=== PATIENT | male | born 1930 | race Caucasian/White ===

== ENCOUNTER 2017-03-12 16:42 | Inpatient (IN) | payer MEDICARE, BC ==
--- NOTE | 2017-03-12 17:16 | ED PDOC ---
Lower Extremity Pain/Injury Time Seen by Provider: 03/12/17 16:54 Chief Complaint (Nursing): Hip Pain Chief Complaint (Provider): RIGHT hip pain History Per: Family Onset/Duration Of Symptoms: Days (6) Current Symptoms Are (Timing): Still Present Additional Complaint(s): Walking in a park on Thursday and missed a step and fell on his RIGHT side but has been frequently losing balance recently. c/o limp and RIGHT hip, knee and ankle pain PMD DR Antonio - Hip Description Of Injury: Tripped, Lost Balance Past Medical History Reviewed: Historical Data, Nursing Documentation, Vital Signs Vital Signs: Last Vital Signs Temp 99.1 F 03/12/17 16:49 Pulse 68 03/12/17 16:49 Resp 16 03/12/17 16:49 BP 146/71 03/12/17 16:49 Pulse Ox 95 03/12/17 16:49 - Medical History PMH: CAD, HTN, Hypercholesterolemia - Surgical History Surgical History: Pacemaker - Family History Family History: States: Unknown Family Hx - Social History Current smoker - smoking cessation education provided: No - Home Medications Home Medications: Ambulatory Orders Medication Instructions Recorded Atorvastatin [Lipitor] 1 tab PO DAILY 03/12/17 Memantine [Namenda] 1 tab PO HS 03/12/17 Valsartan/Hydrochlorothiazide 1 tab PO DAILY 03/12/17 [Valsartan-Hctz 80-12.5 mg Tab] Vit B12/Levomefolate/Vit B6/B2 1 tab PO DAILY 03/12/17 [Cerefolin Caplet] - Allergies Allergies/Adverse Reactions: Allergies Allergy/AdvReac Type Severity Reaction Status Date / Time No Known Allergies Allergy Verified 03/12/17 16:49 Review of Systems ROS Statement: Except As Marked, All Systems Reviewed And Found Negative (and as per HPI) Constitutional: Positive for: Weakness, Malaise Cardiovascular: Positive for: Light Headedness. Negative for: Chest Pain Musculoskeletal: Positive for: Arm Pain, Leg Pain Skin: Positive for: Lesions Neurological: Positive for: Incoordination, Dizziness Physical Exam - Reviewed Nursing Documentation Reviewed: Yes Vital Signs Reviewed: Yes - Physical Exam Appears: Positive for: Non-toxic, No Acute Distress Head Exam: Positive for: ATRAUMATIC, NORMOCEPHALIC Skin: Positive for: Warm, Dry Eye Exam: Positive for: EOMI, PERRL ENT: Positive for: Pharynx Is (dry) Neck: Positive for: Painless ROM, Supple Cardiovascular/Chest: Positive for: Regular Rate, Rhythm, Chest Non Tender. Negative for: Murmur Respiratory: Positive for: Normal Breath Sounds. Negative for: Respiratory Distress Gastrointestinal/Abdominal: Positive for: Soft. Negative for: Tenderness Back: Positive for: Other (RIGHT SI tenderness to palpation with +SLR) Extremity: Positive for: Other (RIGHT knee: +pain illicited with extension and flexion, but otherwise no deformity or edema, neurovascularly intact distally. RIGHT hip: +log roll, but no deformity, +ttp deep palpation of lateral groin. RIGHT elbow: wound RIGHT elbow with erythema extension along upper arm posterioroly) Lymphatic: Negative for: Adenopathy Neurologic/Psych: Positive for: Alert, Oriented (x2), Gait (unable to ambulate) . Negative for: Motor/Sensory Deficits - Laboratory Results Result Diagrams: 03/12/17 21:35 03/12/17 21:35 - ECG O2 Sat by Pulse Oximetry: 95 Pulse Ox Interpretation: Normal - Progress ED Course And Treament: Accession No. : [id number] Patient Name / ID : KAREN PECK / [id number] Exam Date : 03/12/2017 18:05:14 ( Approved ) Study Comment : Sex / Age : M / 86Y Creator : Bhavesh Westbrook MD Dictator : Bhavesh Westbrook MD Motor Adjuster : Level Vial Marker : Bhavesh Westbrook MD Approver2 : Report Date : 03/12/2017 19:02:31 My Comment : PROCEDURE: CT HEAD WITHOUT CONTRAST. HISTORY: frequent falls and loss of balance COMPARISON: 12/31/2016 TECHNIQUE: Axial computed tomography images were obtained through the head/brain without intravenous contrast. Coronal and sagittal reconstructed images. Radiation dose: Total exam DLP = 891.67 mGy-cm. This CT exam was performed using one or more of the following dose reduction techniques: Automated exposure control, adjustment of the mA and/or kV according to patient size, and/or use of iterative reconstruction technique. FINDINGS: HEMORRHAGE: No intracranial hemorrhage. BRAIN: No mass effect or edema. Cortical atrophy, periventricular small vessel disease VENTRICLES: Unremarkable. No hydrocephalus. CALVARIUM: Unremarkable. PARANASAL SINUSES: Unremarkable as visualized. No significant inflammatory changes. MASTOID AIR CELLS: Unremarkable as visualized. No inflammatory changes. OTHER FINDINGS: None. IMPRESSION: Normal CT of the Head. No acute intracranial abnormalities. No significant findings to account for the clinical presentation. No significant interval change compared to the prior examination(s). Pt has unsteady gait, inability to walk, and intractable pain, as well as RIGHT elbow wound infection and cellulitis. DW Dr Antonio and family. Pt to be hospitalized for further workup and management. Disposition - Clinical Impression Clinical Impression: Gait abnormality, Multiple trauma, Cellulitis - Disposition Disposition Time: 19:00 Condition: GUARDED - Pt Status Changed To: Hospital Disposition Of: Inpatient - Admit Certification Admit to Inpatient:: After my assessment, the patient will require hospitalization for at least two midnights. This is because of the severity of symptoms shown, intensity of services needed, and/or the medical risk in this patient being treated as an outpatient. - POA Present On Arrival: Falls Or Trauma
--- NOTE | 2017-03-12 19:03 | CT ---
PROCEDURE: CT HEAD WITHOUT CONTRAST. HISTORY: frequent falls and loss of balance COMPARISON: 12/31/2016 TECHNIQUE: Axial computed tomography images were obtained through the head/brain without intravenous contrast. Coronal and sagittal reconstructed images. Radiation dose: Total exam DLP = 891.67 mGy-cm. This CT exam was performed using one or more of the following dose reduction techniques: Automated exposure control, adjustment of the mA and/or kV according to patient size, and/or use of iterative reconstruction technique. FINDINGS: HEMORRHAGE: No intracranial hemorrhage. BRAIN: No mass effect or edema. Cortical atrophy, periventricular small vessel disease VENTRICLES: Unremarkable. No hydrocephalus. CALVARIUM: Unremarkable. PARANASAL SINUSES: Unremarkable as visualized. No significant inflammatory changes. MASTOID AIR CELLS: Unremarkable as visualized. No inflammatory changes. OTHER FINDINGS: None. IMPRESSION: Normal CT of the Head. No acute intracranial abnormalities. No significant findings to account for the clinical presentation. No significant interval change compared to the prior examination(s).
[2017-03-12] MEDS ORDERED: Bacitracin 500 Units/gm Oint Foilpak UD TOP ONE (20:39)
[2017-03-12] MEDS ORDERED: Ampicillin/Sulbactam 3 GM in Sodium Chloride 0.9% 100 ML IVPB STA (21:06)
[2017-03-12 21:51] LABS: BASO % 0.6 % (0.0-2.0); EOS % 0.3 % (0.0-4.0); HEMATOCRIT 34.8 % (35.0-51.0); LYMPH # 1.8 K/uL (1.0-4.3); LYMPH % 30.9 % (20.0-40.0); MEAN CELL VOLUME 95.4 fl (80.0-94.0); MEAN CORPUSCULAR HEMOGLOBIN 31.7 pg (27.0-31.0); MEAN CORPUSCULAR HGB CONC 33.2 g/dL (33.0-37.0); MEAN PLATELET VOLUME 8.2 fl (7.2-11.7); MONO % 16.6 % (0.0-10.0); NEUT # 3.1 K/uL (1.8-7.0); NEUT % 51.6 % (50.0-75.0); RED CELL DISTRIBUTION WIDTH 12.6 % (11.5-14.5); WHITE BLOOD COUNT 5.9 K/uL (4.8-10.8)
[2017-03-12 22:11] LABS: ALB/GLOB RATIO 1.4 (1.0-2.1); ALKALINE PHOSPHATASE 55 U/L (38-126); ALT/SGPT 28 U/L (21-72); AST/SGOT 29 U/L (17-59); BILIRUBIN,TOTAL 0.9 mg/dl (0.2-1.3); BLOOD UREA NITROGEN 15 mg/dl (9-20); CALCIUM 9.5 mg/dL (8.4-10.2); CARBON DIOXIDE 29 mmol/L (22-30); CHLORIDE 100 mmol/L (98-107); GFR AFRICAN-AMERICAN > 60; GLUCOSE,RANDOM 101 mg/dL (75-110); PHOSPHOROUS 3.3 mg/dl (2.5-4.5); POTASSIUM 3.8 MMOL/L (3.6-5.0); SODIUM 139 mmol/l (132-148)
[2017-03-13] MEDS ORDERED: Pneumococcal 23-Valent Vaccine IM ONE (07:49)
[2017-03-13] MEDS ORDERED: Influenza Vaccine 18yr & older 0.5 ML/45 MCG SYR IM ONE (07:49)
--- NOTE | 2017-03-13 08:06 | CARD ---
APPROVED REPORT EKG Measurement Heart [id number] <Conclusion> Normal sinus rhythm Normal ECG
[2017-03-13] MEDS ORDERED: Patient's Own Med (Valsartan/Hydrochlorothiazide [Valsartan-Hctz 80-12.5 Mg Tab] 1 TAB) PO SCH (09:00)
[2017-03-13] MEDS ORDERED: Ampicillin/Sulbactam 1.5 gm Inj IVPB SCH (09:00)
[2017-03-13] MEDS: Ampicillin/Sulbactam 1.5 GM in Sodium Chloride 0.9% 100 ML IVPB SCH ×2 (09:28→17:07)
[2017-03-13] MEDS: Enoxaparin 40 mg Syringe SC SCH (09:29)
[2017-03-13 09:30] LABS: THYROID STIMULATING HORMONE 2.74 mIU/ML (0.46-4.68)
--- NOTE | 2017-03-13 10:23 | RAD ---
HISTORY: Falls COMPARISON: 12/13/2013. FINDINGS: LUNGS: The lungs are well inflated and clear. PLEURA: No significant pleural effusion identified, no pneumothorax apparent. CARDIOVASCULAR: The heart is normal in size. There is stable position of a left-sided dual lead transvenous permanent pacing device. Atherosclerotic aortic arch calcifications are present. OSSEOUS STRUCTURES: No significant abnormalities. VISUALIZED UPPER ABDOMEN: Normal. OTHER FINDINGS: None. IMPRESSION: No active pulmonary disease.
--- NOTE | 2017-03-13 10:45 | RAD ---
PROCEDURE: Right Ankle Radiographs. HISTORY: pain s/p fall COMPARISON: None FINDINGS: BONES: There is no acute displaced fracture or bone destruction. Bone alignment there is normal. JOINTS: Normal. No osteoarthritis. Ankle mortise maintained. Talar dome intact SOFT TISSUES: There is mild periarticular soft tissue swelling. OTHER FINDINGS: None. IMPRESSION: No acute fracture or dislocation.
--- NOTE | 2017-03-13 10:51 | RAD ---
PROCEDURE: Right Knee Radiographs. HISTORY: pain s/p fall COMPARISON: None. FINDINGS: BONES: There is no acute displaced fracture or bone destruction. Bone alignment and mineralization are normal. JOINTS: There is severe tricompartmental degenerative osteoarthrosis with reduced joint spaces, marginal spurring and chondrocalcinosis, worse in the medial compartment. JOINT EFFUSION: There is a moderate suprapatellar joint effusion. OTHER FINDINGS: None. IMPRESSION: No acute fracture or dislocation. Severe tricompartmental degenerative osteoarthrosis, worse in the medial compartment. Moderate suprapatellar joint effusion
--- NOTE | 2017-03-13 10:55 | CP.PCM.CON ---
History of Present Illness - History of Present Illness History of Present Illness: This 86-year-old hypertensive man was hospitalized upon complaining of severe lower back pain and intense pain in his right lower extremity in his doctor's office. He had had a fall in which she had injured right side of his body including right elbow and had complained of aches and pains prior to going to the doctor's office. He has a long medical history which includes hypertension and sick sinus syndrome for which she initially needed a DDD pacemaker implanted in 2004 which was revised couple of years back. He has a history of having required TURP approximately 4 or 5 years back subsequent to which he has not taken any medications for prostatism. Over the last 4-5 years. He has gradually developed cognitive decline and has had repeated episodes of falling. He had undergone a coronary angiogram more than 12 years back no significant coronary disease was detected no intervention was undertaken. Subsequently the patient has not experienced any effort related chest pain and there has never been symptoms of congestive cardiac failure. The patient has taken antihypertensives medications regularly. Physical examination shows an elderly man who is alert and awake and seems to be quite aware of his surroundings and interacts with me and his family appropriately. Afebrile with a pulse rate of 68 bpm and regular and a blood pressure of 126/74 mmHg. His jugular venous pressure was not elevated at there was no edema of his lower extremity. The pedal pulses were well felt. There were no carotid bruits. The first and second heart sounds are normal. There was no murmur or gallop there were no rales. Abdomen was soft liver and spleen are not palpable. The patient was able to lift his right lower extremity without much difficulty but did complain of aches and pains. His electric cardiogram showed sinus rhythm at 63 bpm with a pacemaker mostly in the sensing more. No Q waves were detected on the electric cardiac gram. His lab data was noted. Impression: Back injury during a fall due to ataxia. Dementia. Hypertension. Status post DDD pacemaker implant for sick sinus syndrome. The pacemaker was recently checked trans-telephonically in early January and shows normal function and adequate battery. He is stable from cardiovascular point of few. Past Patient History - Infectious Disease Hx of Infectious Diseases: None - Past Medical History & Family History Past Medical History?: Yes - Past Social History Smoking Status: Never Smoked - CARDIAC Hx Hypercholesterolemia: Yes Hx Hypertension: Yes Hx Pacemaker: Yes - NEUROLOGICAL Hx Dementia: Yes - MUSCULOSKELETAL/RHEUMATOLOGICAL Hx Falls: Yes - PSYCHIATRIC Hx Substance Use: No - SURGICAL HISTORY Other/Comment: pacemaker - ANESTHESIA Hx Anesthesia: Yes Hx Anesthesia Reactions: No Hx Malignant Hyperthermia: No Meds Allergies/Adverse Reactions: Allergies Allergy/AdvReac Type Severity Reaction Status Date / Time No Known Allergies Allergy Verified 03/12/17 16:49 - Medications Medications: Current Medications Atorvastatin Calcium (Lipitor) 10 mg PO DAILY [facility] Last Admin: 03/13/17 09:28 Dose: 10 mg Enoxaparin Sodium (Lovenox) 40 mg SC DAILY [facility] PRN Reason: Protocol Last Admin: 03/13/17 09:29 Dose: 40 mg Home Med (Vit B12/Levomefolate/Vit B6/B2 [Cerefolin Caplet]) 1 tab PO DAILY [facility] Hydrochlorothiazide (Microzide) 12.5 mg PO DAILY [facility] Last Admin: 03/13/17 09:29 Dose: 12.5 mg Ampicillin Sodium/Sulbactam (Sodium 1.5 gm/ Sodium Chloride) 100 mls @ 100 mls/ hr IVPB Q8 [facility] Last Admin: 03/13/17 09:28 Dose: 100 mls/hr Memantine (Namenda) 5 mg PO HS [facility] Valsartan (Diovan) 80 mg PO DAILY [facility] Last Admin: 03/13/17 09:29 Dose: 80 mg Results - Vital Signs Recent Vital Signs: Last Vital Signs Temp 98.5 F 03/13/17 07:24 Pulse 61 03/13/17 07:24 Resp 18 03/13/17 07:24 BP 141/70 03/13/17 07:24 Pulse Ox 95 03/13/17 07:24 - Labs Result Diagrams: 03/12/17 21:35 03/12/17 21:35 Labs: Laboratory Results - last 24 hr 03/12/17 03/12/17 03/12/17 21:35 21:35 21:35 WBC 5.9 RBC 3.65 L Hgb 11.6 L Hct 34.8 L MCV 95.4 H MCH 31.7 H MCHC 33.2 RDW 12.6 Plt Count 125 L MPV 8.2 Neut % (Auto) 51.6 Lymph % (Auto) 30.9 [place] % (Auto) 16.6 H Eos % (Auto) 0.3 Baso % (Auto) 0.6 Neut # 3.1 Lymph # 1.8 [place] # 1.0 H Eos # 0.0 Baso # 0.0 PT INR D-Dimer, Quantitative Sodium 139 Potassium 3.8 Chloride 100 Carbon Dioxide 29 Anion Gap 15 BUN 15 Creatinine 0.8 Est GFR ( Amer) > 60 Est GFR (Non-Af Amer) > 60 Random Glucose 101 Calcium 9.5 Phosphorus 3.3 Magnesium 2.0 Total Bilirubin 0.9 AST 29 ALT 28 Alkaline Phosphatase 55 Troponin I Total Protein 7.0 Albumin 4.1 Globulin 2.9 Albumin/Globulin Ratio 1.4 Vitamin B12 TSH 3rd Generation Blood Type A POSITIVE Antibody Screen Negative BBK History Checked No verified bt 03/13/17 03/13/17 03/13/17 08:30 08:30 08:30 WBC RBC Hgb Hct MCV MCH MCHC RDW Plt Count MPV Neut % (Auto) Lymph % (Auto) [place] % (Auto) Eos % (Auto) Baso % (Auto) Neut # Lymph # [place] # Eos # Baso # PT 11.9 INR 1.1 D-Dimer, Quantitative 405 H Sodium Potassium Chloride Carbon Dioxide Anion Gap BUN Creatinine Est GFR ( Amer) Est GFR (Non-Af Amer) Random Glucose Calcium Phosphorus Magnesium Total Bilirubin AST ALT Alkaline Phosphatase Troponin I < 0.0120 Total Protein Albumin Globulin Albumin/Globulin Ratio Vitamin B12 944 H TSH 3rd Generation 2.74 Blood Type Antibody Screen BBK History Checked
--- NOTE | 2017-03-13 11:11 | RAD ---
PROCEDURE: Radiographs of the Lumbar Spine. HISTORY: Pain, status post fall COMPARISON: No prior. FINDINGS: BONES: There is normal alignment of the lumbar vertebral bodies. Lumbar lordosis is maintained. Vertebral bodies are normal in height. There is diffuse bone demineralization. There is no acute fracture. DISC SPACES: There is multilevel degenerative disc disease with anterior osteophytes and multilevel facet arthropathy, worse at L5-S1. OTHER FINDINGS: None. IMPRESSION: No acute fracture. Multilevel degenerative disc disease, worse at L5-S1.
--- NOTE | 2017-03-13 11:14 | RAD ---
PROCEDURE: Right Hip Radiographs. HISTORY: pain s/p fall COMPARISON: None. FINDINGS: BONES: The pelvic ring is intact. There is no acute displaced fracture or bone destruction. Bone alignment and mineralization are normal. JOINTS: Normal. SOFT TISSUES: Normal. OTHER FINDINGS: There are advanced atherosclerotic vascular calcifications. IMPRESSION: No acute fracture or dislocation.
--- NOTE | 2017-03-13 11:37 | RAD ---
PROCEDURE: Right Foot Radiographs. HISTORY: Trauma COMPARISON: None. FINDINGS: BONES: Bone alignment and mineralization are normal. There is no acute displaced fracture or bone destruction. JOINTS: There is moderate degenerative osteoarthrosis in the subtalar joints. SOFT TISSUES: Normal. OTHER FINDINGS: None. IMPRESSION: No acute displaced fracture or dislocation.
[2017-03-13 13:02] LABS: FOLATE > 20.0 ng/mL
--- NOTE | 2017-03-13 13:18 | CP.PCM.CON ---
History of Present Illness - History of Present Illness History of Present Illness: Patient is a pleasant 86 y/o gentleman with hx of mild dementia, CAD, BPH, HTN, s/p pacemaker. He was walking in a park on 03/07 and missed when he fell on his RIGHT side. The hx is not clear if was by accident or secondary to vertigo or presyncopal episode. As per family has been frequently losing balance recently. He presented in ER with severe pain in the Rt side of his body severally incapacitated and and not able to walk. He c/o severe pain in his L/S , Rt hip, Rt knee, Rt foot and rt elbow where he present a large ecchymosis with erythema and stage 2/3 ulceration with same purulent discharge. Before this episode he was able to walk with no restriction. As per family patient is not c/o with medications. Review of Systems - Constitutional Constitutional: As Per HPI - EENT Eyes: As Per HPI - Cardiovascular Cardiovascular: As Per HPI - Respiratory Respiratory: As Per HPI - Gastrointestinal Gastrointestinal: As Per HPI - Neurological Neurological: As Per HPI - Psychiatric Psychiatric: As Per HPI Past Patient History - Infectious Disease Hx of Infectious Diseases: None - Past Medical History & Family History Past Medical History?: Yes - Past Social History Smoking Status: Never Smoked - CARDIAC Hx Hypercholesterolemia: Yes Hx Hypertension: Yes Hx Pacemaker: Yes - NEUROLOGICAL Hx Dementia: Yes - MUSCULOSKELETAL/RHEUMATOLOGICAL Hx Falls: Yes - PSYCHIATRIC Hx Substance Use: No - SURGICAL HISTORY Other/Comment: pacemaker - ANESTHESIA Hx Anesthesia: Yes Hx Anesthesia Reactions: No Hx Malignant Hyperthermia: No Meds Allergies/Adverse Reactions: Allergies Allergy/AdvReac Type Severity Reaction Status Date / Time No Known Allergies Allergy Verified 03/12/17 16:49 - Medications Medications: Current Medications Atorvastatin Calcium (Lipitor) 10 mg PO DAILY [facility] Last Admin: 03/13/17 09:28 Dose: 10 mg Enoxaparin Sodium (Lovenox) 40 mg SC DAILY [facility] PRN Reason: Protocol Last Admin: 03/13/17 09:29 Dose: 40 mg Home Med (Vit B12/Levomefolate/Vit B6/B2 [Cerefolin Caplet]) 1 tab PO DAILY [facility] Hydrochlorothiazide (Microzide) 12.5 mg PO DAILY [facility] Last Admin: 03/13/17 09:29 Dose: 12.5 mg Ampicillin Sodium/Sulbactam (Sodium 1.5 gm/ Sodium Chloride) 100 mls @ 100 mls/ hr IVPB Q8 [facility] Last Admin: 03/13/17 09:28 Dose: 100 mls/hr Memantine (Namenda) 5 mg PO HS [facility] Valsartan (Diovan) 80 mg PO DAILY [facility] Last Admin: 03/13/17 09:29 Dose: 80 mg Physical Exam - Constitutional Appears: Chronically Ill - Head Exam Head Exam: ATRAUMATIC, NORMAL INSPECTION, NORMOCEPHALIC - Eye Exam Eye Exam: Normal appearance - ENT Exam ENT Exam: Mucous Membranes Moist - Neck Exam Neck exam: Positive for: Full Rom - Respiratory Exam Respiratory Exam: Clear to Auscultation Bilateral - Cardiovascular Exam Cardiovascular Exam: REGULAR RHYTHM, +S1, +S2 - GI/Abdominal Exam GI & Abdominal Exam: Normal Bowel Sounds - Extremities Exam Additional comments: decrease in range of movement of the rt lover limb with diffuse tenderness. The rt elbow reveled a large ecchymosis with erythema tenderness and a ulceration stage 2/3. - Back Exam Back exam: muscle spasm, paraspinal tenderness, tenderness - Neurological Exam Neurological exam: Altered - Psychiatric Exam Psychiatric exam: Flat Affect - Skin Skin Exam: Abrasion Results - Vital Signs Recent Vital Signs: Last Vital Signs Temp 98.5 F 03/13/17 07:24 Pulse 61 03/13/17 07:24 Resp 20 03/13/17 10:00 BP 141/70 03/13/17 07:24 Pulse Ox 95 03/13/17 07:24 - Labs Result Diagrams: 03/12/17 21:35 03/12/17 21:35 Labs: Laboratory Results - last 24 hr 03/12/17 03/12/17 03/12/17 21:35 21:35 21:35 WBC 5.9 RBC 3.65 L Hgb 11.6 L Hct 34.8 L MCV 95.4 H MCH 31.7 H MCHC 33.2 RDW 12.6 Plt Count 125 L MPV 8.2 Neut % (Auto) 51.6 Lymph % (Auto) 30.9 [place] % (Auto) 16.6 H Eos % (Auto) 0.3 Baso % (Auto) 0.6 Neut # 3.1 Lymph # 1.8 [place] # 1.0 H Eos # 0.0 Baso # 0.0 PT INR D-Dimer, Quantitative Sodium 139 Potassium 3.8 Chloride 100 Carbon Dioxide 29 Anion Gap 15 BUN 15 Creatinine 0.8 Est GFR ( Amer) > 60 Est GFR (Non-Af Amer) > 60 Random Glucose 101 Calcium 9.5 Phosphorus 3.3 Magnesium 2.0 Total Bilirubin 0.9 AST 29 ALT 28 Alkaline Phosphatase 55 Troponin I Total Protein 7.0 Albumin 4.1 Globulin 2.9 Albumin/Globulin Ratio 1.4 Vitamin B12 Folate TSH 3rd Generation Blood Type A POSITIVE Antibody Screen Negative BBK History Checked No verified bt 03/13/17 03/13/17 03/13/17 08:30 08:30 08:30 WBC RBC Hgb Hct MCV MCH MCHC RDW Plt Count MPV Neut % (Auto) Lymph % (Auto) [place] % (Auto) Eos % (Auto) Baso % (Auto) Neut # Lymph # [place] # Eos # Baso # PT 11.9 INR 1.1 D-Dimer, Quantitative 405 H Sodium Potassium Chloride Carbon Dioxide Anion Gap BUN Creatinine Est GFR ( Amer) Est GFR (Non-Af Amer) Random Glucose Calcium Phosphorus Magnesium Total Bilirubin AST ALT Alkaline Phosphatase Troponin I < 0.0120 Total Protein Albumin Globulin Albumin/Globulin Ratio Vitamin B12 944 H Folate > 20.0 TSH 3rd Generation 2.74 Blood Type Antibody Screen BBK History Checked Assessment & Plan (1) Cellulitis Status: Acute (2) Multiple trauma Status: Acute (3) Gait abnormality Status: Acute (4) Ataxia Status: Acute (5) Pre-syncope Status: Suspected (6) TIA (transient ischemic attack) Status: Suspected (7) Hypertensive cardiovascular disease Status: Chronic (8) Dementia Status: Chronic (9) DVT (deep venous thrombosis) Status: Suspected (10) Non compliance w medication regimen Status: Chronic - Assessment and Plan (Free Text) Plan: As per orders Will follow with consultants.
--- NOTE | 2017-03-13 14:35 | US ---
PROCEDURE: Bilateral lower extremity venous duplex Doppler. HISTORY: r/o DVT COMPARISON: None available. TECHNIQUE: Bilateral common femoral, superficial femoral, popliteal and posterior tibial veins were evaluated. Flow was assessed with color Doppler, compressibility, assessment of phasic flow and augmentation response. FINDINGS: COMMON FEMORAL VEIN: Right CFV: Unremarkable. Left CFV: Unremarkable. SUPERFICIAL FEMORAL VEIN: Right SFV: Unremarkable. Left SFV: Unremarkable. POPLITEAL VEIN: Right Popliteal: Unremarkable. Left Popliteal: Unremarkable. POSTERIOR TIBIAL VEIN: Right PTV: Unremarkable. Left PTV: Unremarkable. OTHER FINDINGS: There is a 3.2 x 0.9 x 2.1 cm complicated popliteal cyst. IMPRESSION: No evidence of deep venous thrombosis.
--- NOTE | 2017-03-13 14:51 | PQF GENQUE ---
Dr. 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 Nurses admission assessment: Pressure Ulcer: POA: NO This form is a permanent part of the medical record Clarification of your documentation is requested to better reflect the severity of illness and intensity of treatment of your patient. Indicators present [] Specify: [] [] Specify: [] [] Specify: [] [] Specify: [] Location in the medical record that reflects the above clinical findings: [] Treatment Provided: [] PHYSICIAN'S RESPONSE Based on your medical judgment of the clinical indicators outlined above please clarify the following: [] Practitioner response [] If unable to determine, please check the box, sign and date. Present On Admission (POA) Indicator: [] Present at the time of admission [] Not present at the time of admission [] Clinically Undetermined In responding to this query, please exercise your independent professional judgment. The fact that a question is asked does not imply that any particular answer is desired or expected. Thank you for your clarification on this documentation. If you have any questions please call. * Thank you, Polly Blevins RN exr. #[id number]: Siobhan Reynolds RN MTDD
--- NOTE | 2017-03-13 14:57 | PQF GENQUE ---
Dr. Antonio, Site of Cellulitis? listed in the H and P OR: Other explanation of clinical finding Hand P: Assessment::(1) Cellulitis Status: Acute (2) Multiple trauma Status: Acute (3) Gait abnormality Status: Acute (4) Ataxia Status: Acute (5) Pre-syncope Status: Suspected (6) TIA (transient ischemic attack) Status: Suspected (7) Hypertensive cardiovascular disease Status: Chronic (8) Dementia Status: Chronic (9) DVT (deep venous thrombosis) Status: Suspected (10) Non compliance w medication regimen Status: Chronic This form is a permanent part of the medical record Clarification of your documentation is requested to better reflect the severity of illness and intensity of treatment of your patient. Indicators present [] Specify: [X SITE RT ELBOW] [] Specify: [] [] Specify: [] [] Specify: [] Location in the medical record that reflects the above clinical findings: [] Treatment Provided: [] PHYSICIAN'S RESPONSE Based on your medical judgment of the clinical indicators outlined above please clarify the following: [] Practitioner response [] If unable to determine, please check the box, sign and date. Present On Admission (POA) Indicator: [] Present at the time of admission [] Not present at the time of admission [] Clinically Undetermined In responding to this query, please exercise your independent professional judgment. The fact that a question is asked does not imply that any particular answer is desired or expected. Thank you for your clarification on this documentation. If you have any questions please call. * Thank you, Polly Blevins RN ext. #[phone]: Siobhan DENIS
--- NOTE | 2017-03-13 15:06 | US ---
PROCEDURE: Duplex ultrasound of the carotid and vertebral arteries. HISTORY: TIA COMPARISON: None available. TECHNIQUE: Grayscale and duplex Doppler evaluation of the cervical carotid and vertebral arteries were performed. The common carotid, carotid bifurcations and cervical ICA and proximal ECA were evaluated. The vertebral arteries were evaluated for gross patency and direction. FINDINGS: RIGHT CAROTID ARTERIES: Common Carotid Artery: Heterogeneous plaque formation. Maximal flow velocity of 70.2 cm/s. Carotid Bifurcation: Normal. Internal Carotid Artery:Heterogeneous plaque formation. Maximal flow velocity of 93.1 cm/s. External Carotid Artery (proximal branches): Normal. Maximal flow velocity of 99.5 cm/s. ICA/CCA Ratio: 1.3 LEFT CAROTID ARTERIES: Common Carotid Artery: Normal. Maximal flow velocity of 93.6 cm/s. Carotid Bifurcation: Normal. Internal Carotid Artery:Normal. Maximal flow velocity of 99.3 cm/s. External Carotid Artery (proximal branches): Considerable heterogeneous plaque with multiple areas of relative narrowing. Monophasic waveform noted. Maximal flow velocity of 148.2 cm/s. ICA/CCA Ratio: 1.3 VERTEBRAL ARTERIES: Right Vertebral Artery: Patent. Antegrade flow. Left Vertebral Artery: Patent. Antegrade flow. OTHER FINDINGS: None. IMPRESSION: Right ICA degree of stenosis: Less than 50% Left ICA degree of stenosis: Less than 50% Reference Internal Carotid Artery (ICA) Peak Systolic Velocity (PSV) for above: 1. Less than 50% stenosis less than 125 cm/s peak systolic velocity 2. 50-69% stenosis 125-230cm/s peak systolic velocity 3. Greater than 70% but less than near occlusion greater than 230 cm/s peak systolic velocity
--- NOTE | 2017-03-13 15:10 | CP.PCM.HP ---
History of Present Illness - History of Present Illness History of Present Illness: History of Present Illness - History of Present Illness History of Present Illness: Patient is a pleasant 86 y/o gentleman with hx of mild dementia, CAD, BPH, HTN, s/p pacemaker. He was walking in a park on 03/07 and missed when he fell on his RIGHT side. The hx is not clear if was by accident or secondary to vertigo or presyncopal episode. As per family has been frequently losing balance recently. He presented in ER with severe pain in the Rt side of his body severally incapacitated and and not able to walk. He c/o severe pain in his L/S , Rt hip, Rt knee, Rt foot and rt elbow where he present a large ecchymosis with erythema and stage 2/3 ulceration with same purulent discharge. Before this episode he was able to walk with no restriction. As per family patient is not c/o with medications. Review of Systems - Constitutional Constitutional: As Per HPI - EENT Eyes: As Per HPI - Cardiovascular Cardiovascular: As Per HPI - Respiratory Respiratory: As Per HPI - Gastrointestinal Gastrointestinal: As Per HPI - Neurological Neurological: As Per HPI - Psychiatric Psychiatric: As Per HPI Past Patient History - Infectious Disease Hx of Infectious Diseases: None - Past Medical History & Family History Past Medical History?: Yes - Past Social History Smoking Status: Never Smoked - CARDIAC Hx Hypercholesterolemia: Yes Hx Hypertension: Yes Hx Pacemaker: Yes - NEUROLOGICAL Hx Dementia: Yes - MUSCULOSKELETAL/RHEUMATOLOGICAL Hx Falls: Yes - PSYCHIATRIC Hx Substance Use: No - SURGICAL HISTORY Other/Comment: pacemaker - ANESTHESIA Hx Anesthesia: Yes Hx Anesthesia Reactions: No Hx Malignant Hyperthermia: No Meds Allergies/Adverse Reactions: Allergies Allergy/AdvReac Type Severity Reaction Status Date / Time No Known Allergies Allergy Verified 03/12/17 16:49 - Medications Medications: Current Medications Atorvastatin Calcium (Lipitor) 10 mg PO DAILY [facility] Last Admin: 03/13/17 09:28 Dose: 10 mg Enoxaparin Sodium (Lovenox) 40 mg SC DAILY [facility]ID PRN Reason: Protocol Last Admin: 03/13/17 09:29 Dose: 40 mg Home Med (Vit B12/Levomefolate/Vit B6/B2 [Cerefolin Caplet]) 1 tab PO DAILY [facility]ID Hydrochlorothiazide (Microzide) 12.5 mg PO DAILY DAVID Last Admin: 03/13/17 09:29 Dose: 12.5 mg Ampicillin Sodium/Sulbactam (Sodium 1.5 gm/ Sodium Chloride) 100 mls @ 100 mls/ hr IVPB Q8 [facility] Last Admin: 03/13/17 09:28 Dose: 100 mls/hr Memantine (Namenda) 5 mg PO HS [facility] Valsartan (Diovan) 80 mg PO DAILY [facility] Last Admin: 03/13/17 09:29 Dose: 80 mg Physical Exam - Constitutional Appears: Chronically Ill - Head Exam Head Exam: ATRAUMATIC, NORMAL INSPECTION, NORMOCEPHALIC - Eye Exam Eye Exam: Normal appearance - ENT Exam ENT Exam: Mucous Membranes Moist - Neck Exam Neck exam: Positive for: Full Rom - Respiratory Exam Respiratory Exam: Clear to Auscultation Bilateral - Cardiovascular Exam Cardiovascular Exam: REGULAR RHYTHM, +S1, +S2 - GI/Abdominal Exam GI & Abdominal Exam: Normal Bowel Sounds - Extremities Exam Additional comments: decrease in range of movement of the rt lover limb with diffuse tenderness. The rt elbow reveled a large ecchymosis with erythema tenderness and a ulceration stage 2/3. - Back Exam Back exam: muscle spasm, paraspinal tenderness, tenderness - Neurological Exam Neurological exam: Altered - Psychiatric Exam Psychiatric exam: Flat Affect - Skin Skin Exam: Abrasion Results - Vital Signs Recent Vital Signs: Last Vital Signs Temp 98.5 F 03/13/17 07:24 Pulse 61 03/13/17 07:24 Resp 20 03/13/17 10:00 BP 141/70 03/13/17 07:24 Pulse Ox 95 03/13/17 07:24 - Labs Result Diagrams: 03/12/17 21:35 03/12/17 21:35 Labs: Laboratory Results - last 24 hr 03/12/17 03/12/17 03/12/17 21:35 21:35 21:35 WBC 5.9 RBC 3.65 L Hgb 11.6 L Hct 34.8 L MCV 95.4 H MCH 31.7 H MCHC 33.2 RDW 12.6 Plt Count 125 L MPV 8.2 Neut % (Auto) 51.6 Lymph % (Auto) 30.9 Kerr % (Auto) 16.6 H Eos % (Auto) 0.3 Baso % (Auto) 0.6 Neut # 3.1 Lymph # 1.8 Kerr # 1.0 H Eos # 0.0 Baso # 0.0 PT INR D-Dimer, Quantitative Sodium 139 Potassium 3.8 Chloride 100 Carbon Dioxide 29 Anion Gap 15 BUN 15 Creatinine 0.8 Est GFR ( Amer) > 60 Est GFR (Non-Af Amer) > 60 Random Glucose 101 Calcium 9.5 Phosphorus 3.3 Magnesium 2.0 Total Bilirubin 0.9 AST 29 ALT 28 Alkaline Phosphatase 55 Troponin I Total Protein 7.0 Albumin 4.1 Globulin 2.9 Albumin/Globulin Ratio 1.4 Vitamin B12 Folate TSH 3rd Generation Blood Type A POSITIVE Antibody Screen Negative BBK History Checked No verified bt 03/13/17 03/13/17 03/13/17 08:30 08:30 08:30 WBC RBC Hgb Hct MCV MCH MCHC RDW Plt Count MPV Neut % (Auto) Lymph % (Auto) Kerr % (Auto) Eos % (Auto) Baso % (Auto) Neut # Lymph # Kerr # Eos # Baso # PT 11.9 INR 1.1 D-Dimer, Quantitative 405 H Sodium Potassium Chloride Carbon Dioxide Anion Gap BUN Creatinine Est GFR ( Amer) Est GFR (Non-Af Amer) Random Glucose Calcium Phosphorus Magnesium Total Bilirubin AST ALT Alkaline Phosphatase Troponin I < 0.0120 Total Protein Albumin Globulin Albumin/Globulin Ratio Vitamin B12 944 H Folate > 20.0 TSH 3rd Generation 2.74 Blood Type Antibody Screen BBK History Checked Assessment & Plan (1) Cellulitis Status: Acute (2) Multiple trauma Status: Acute (3) Gait abnormality Status: Acute (4) Ataxia Status: Acute (5) Pre-syncope Status: Suspected (6) TIA (transient ischemic attack) Status: Suspected (7) Hypertensive cardiovascular disease Status: Chronic (8) Dementia Status: Chronic (9) DVT (deep venous thrombosis) Status: Suspected (10) Non compliance w medication regimen Status: Chronic - Assessment and Plan (Free Text) Plan: As per orders Will follow with consultants. Present on Admission - Present on Admission Any Indicators Present on Admission: Yes - Notes: Notes:: ulcer secondary to trauma Past Patient History - Infectious Disease Hx of Infectious Diseases: None - Past Medical History & Family History Past Medical History?: Yes - Past Social History Smoking Status: Never Smoked - CARDIAC Hx Hypercholesterolemia: Yes Hx Hypertension: Yes Hx Pacemaker: Yes - NEUROLOGICAL Hx Dementia: Yes - MUSCULOSKELETAL/RHEUMATOLOGICAL Hx Falls: Yes - PSYCHIATRIC Hx Substance Use: No - SURGICAL HISTORY Other/Comment: pacemaker - ANESTHESIA Hx Anesthesia: Yes Hx Anesthesia Reactions: No Hx Malignant Hyperthermia: No Meds Allergies/Adverse Reactions: Allergies Allergy/AdvReac Type Severity Reaction Status Date / Time No Known Allergies Allergy Verified 03/12/17 16:49 Results - Vital Signs Recent Vital Signs: Last Vital Signs Temp 98.5 F 03/13/17 07:24 Pulse 61 03/13/17 07:24 Resp 20 03/13/17 10:00 BP 141/70 03/13/17 07:24 Pulse Ox 95 03/13/17 07:24 - Labs Result Diagrams: 03/12/17 21:35 03/12/17 21:35 Labs: Laboratory Results - last 24 hr 03/12/17 03/12/17 03/12/17 21:35 21:35 21:35 WBC 5.9 RBC 3.65 L Hgb 11.6 L Hct 34.8 L MCV 95.4 H MCH 31.7 H MCHC 33.2 RDW 12.6 Plt Count 125 L MPV 8.2 Neut % (Auto) 51.6 Lymph % (Auto) 30.9 Kerr % (Auto) 16.6 H Eos % (Auto) 0.3 Baso % (Auto) 0.6 Neut # 3.1 Lymph # 1.8 Kerr # 1.0 H Eos # 0.0 Baso # 0.0 PT INR D-Dimer, Quantitative Sodium 139 Potassium 3.8 Chloride 100 Carbon Dioxide 29 Anion Gap 15 BUN 15 Creatinine 0.8 Est GFR ( Amer) > 60 Est GFR (Non-Af Amer) > 60 Random Glucose 101 Calcium 9.5 Phosphorus 3.3 Magnesium 2.0 Total Bilirubin 0.9 AST 29 ALT 28 Alkaline Phosphatase 55 Troponin I Total Protein 7.0 Albumin 4.1 Globulin 2.9 Albumin/Globulin Ratio 1.4 Vitamin B12 Folate TSH 3rd Generation Blood Type A POSITIVE Antibody Screen Negative BBK History Checked No verified bt 03/13/17 03/13/17 03/13/17 08:30 08:30 08:30 WBC RBC Hgb Hct MCV MCH MCHC RDW Plt Count MPV Neut % (Auto) Lymph % (Auto) Kerr % (Auto) Eos % (Auto) Baso % (Auto) Neut # Lymph # Kerr # Eos # Baso # PT 11.9 INR 1.1 D-Dimer, Quantitative 405 H Sodium Potassium Chloride Carbon Dioxide Anion Gap BUN Creatinine Est GFR ( Amer) Est GFR (Non-Af Amer) Random Glucose Calcium Phosphorus Magnesium Total Bilirubin AST ALT Alkaline Phosphatase Troponin I < 0.0120 Total Protein Albumin Globulin Albumin/Globulin Ratio Vitamin B12 944 H Folate > 20.0 TSH 3rd Generation 2.74 Blood Type Antibody Screen BBK History Checked Assessment & Plan (1) Cellulitis Status: Acute (2) Multiple trauma Status: Acute (3) Gait abnormality Status: Acute (4) Ataxia Status: Acute (5) Pre-syncope Status: Suspected (6) TIA (transient ischemic attack) Status: Suspected (7) Hypertensive cardiovascular disease Status: Chronic (8) Dementia Status: Chronic (9) DVT (deep venous thrombosis) Status: Suspected (10) Non compliance w medication regimen Status: Chronic
[2017-03-13] MEDS: Multivitamin With Minerals Tab PO SCH (17:08)
[2017-03-14] MEDS: Ampicillin/Sulbactam 1.5 GM in Sodium Chloride 0.9% 100 ML IVPB SCH ×3 (00:11→17:23)
--- NOTE | 2017-03-14 05:45 | CON ---
DATE: 03/13/2017 ATTENDING PHYSICIAN: Luis Antonio MD LOCATION: The patient is in room #653, bed 1. REASON FOR CONSULTATION: Change in mental status. CHIEF COMPLAINT: The patient was brought in to [facility] as per the advice of his primary care physician for recent fall and right-sided weakness. HISTORY OF PRESENT ILLNESS: Mr. Farshad Giordano is a 86-year-old right-handed [place] male, who has fallen in the park last day and bruised his right side of the elbow and hip region. Two days after, he fell again at the basement. No family members are aware of this issue. He had a scheduled appointment to see Dr. Antonio yesterday. At the time, daughter about to bring him in to see him, he was complaining of inability to move his right leg. Patient was advised to come to [facility]] for further evaluation. He also is suffering from 3 to 4 years history of dementia, being followed by a local neurologist. No history of loss of consciousness associating with his fall. No history of involuntary movement, bowel or bladder incontinence, or bitten tongue. PAST MEDICAL HISTORY: Hypertension, dyslipidemia, status post pacemaker and dementia. ALLERGIES: NO KNOWN ALLERGIES. PERSONAL HISTORY: Denies smoking and alcohol use. REVIEW OF SYSTEMS: A 12-point system has been reviewed. From neuro, change in mental status and frequent falls. MEDICATIONS: B12, valsartan with hydrochlorothiazide, memantine and atorvastatin. PHYSICAL EXAMINATION VITAL SIGNS: Blood pressure 158/65, mean arterial pressure of 96, respiratory rate is 16, temperature afebrile. NECK: Supple. No significant carotid artery bruit on the right side to compare with left side. HEART: Sounds irregular. EXTREMITIES: Slightly edematous leg on the right side. Status post traumatic abrasion on his right elbow. NEUROLOGIC: Patient is examined in the presence of his daughter. The patient is awake, alert, oriented to person, place and time. Speech is coherent. He has a lot of things which he has and to discuss with his family members, he told that the other few falls at home. Patient is very anxious and commanding personality. No hallucination. No suicidal ideation. No sign of depression. Speech is clear. Naming, repetition, fluency and comprehension, all within normal. CRANIAL NERVE EXAMINATION: Visual dover intact. Pupils are reactive to light. Extraocular movements are normal. No nystagmus. No facial sensory deficits. No facial asymmetry. Hearing seems to be intact. Mouth is moist. Tongue is midline. Good gag. MOTOR EXAMINATION: Outstretched hand with eyes closed, no drifting noted. Power is symmetric on either side. Deep tendon reflexes, biceps, brachialis, triceps trace; both knees are absent; both ankles are absent; plantars are mute on both sides. SENSORY EXAMINATION: Responds to pain symmetrically on both sides. No cortical sensory loss. GAIT: He could able to get up on his own; however, if he had a difficulty getting up by his own, he could have managed by himself. Marching, leaning to the right side. Romberg sign negative. He could not do a tandem. WORKUP: CT of the head had been reviewed, no acute pathology noted. Carotid Doppler was reported as less than 50% stenosis on both the internal carotid arteries. X-ray of lumbosacral spine showed multilevel degenerative disease. Pelvis is normal. BLOOD WORKUP: WBC 5.9, hemoglobin 11.6, hematocrit 34.8, platelet 125. PT 11.9, INR 1.1. D-dimer 405. Sodium 139, potassium 3.9, chloride , bicarbonate 15, BUN 15, creatinine 0.8, EGFR more than 60. Hemoglobin A1c 5.8, B12 944. TSH 2.74. CONCLUSION: Mr. Farshad Giordano has been presenting with the followin. Recurrent fall on his right side. This is probably secondary to transient ischemic attack versus non-convulsive seizures unless otherwise proved. 2. 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 4. Hypertension and dyslipidemia are controlled. RECOMMENDATION: Patient is neurologically clear to go for further rehabilitation to improve his gait. At the same time, patient is also advised to come and see me as a followup visit to do PET amyloid scan to assess his dementia is related to Alzheimer's disease or not. This is the only test that is available to prove whether the patient has it or not. That can be done as outpatient. The patient's condition has been well discussed with family members. Patient will be followed by me as outpatient. Zeke Hart MD [facility] # [id number]
[2017-03-14 08:48] VITALS: RESP 20
[2017-03-14] MEDS: Lactobacillus Acidophilus 500 MU Cap PO SCH ×2 (09:36→17:23)
[2017-03-14] MEDS: Multivitamin With Minerals Tab PO SCH (09:37)
[2017-03-14] MEDS: Enoxaparin 40 mg Syringe SC SCH (09:37)
--- NOTE | 2017-03-14 12:32 | CP.PCM.PN ---
Subjective - Date & Time of Evaluation Date of Evaluation: 03/14/17 Time of Evaluation: 12:35 - Subjective Subjective: Patient still weak, c/o discomfort in the rt elbow and lower limb. Culture are positive for stap aureus. Objective - Vital Signs/Intake and Output Vital Signs (last 24 hours): Temp Pulse Resp BP Pulse Ox 98.5 F 68 20 153/68 H 96 03/14/17 08:48 03/14/17 08:48 03/14/17 08:48 03/14/17 08:48 03/14/17 08:48 - Medications Medications: Current Medications Atorvastatin Calcium (Lipitor) 10 mg PO DAILY [facility] Last Admin: 03/14/17 09:37 Dose: 10 mg Enoxaparin Sodium (Lovenox) 40 mg SC DAILY [facility] PRN Reason: Protocol Last Admin: 03/14/17 09:37 Dose: 40 mg Hydrochlorothiazide (Microzide) 12.5 mg PO DAILY [facility] Last Admin: 03/14/17 09:37 Dose: 12.5 mg Ampicillin Sodium/Sulbactam (Sodium 1.5 gm/ Sodium Chloride) 100 mls @ 100 mls/ hr IVPB Q8 [facility] Last Admin: 03/14/17 09:37 Dose: 100 mls/hr Lactobacillus Acidophilus (Bacid Acidophilus) 1 cap PO BID [facility] Last Admin: 03/14/17 09:36 Dose: 1 cap Memantine (Namenda) 5 mg PO HS [facility] Last Admin: 03/13/17 21:20 Dose: 5 mg Multivitamins/Minerals (Therapeutic-M Tab) 1 tab PO DAILY [facility] Last Admin: 03/14/17 09:37 Dose: 1 tab Valsartan (Diovan) 80 mg PO DAILY [facility] Last Admin: 03/14/17 09:37 Dose: 80 mg - Labs Labs: 03/12/17 21:35 03/12/17 21:35 PT 11.9 Seconds (9.8-13.1) 03/13/17 08:30 INR 1.1 (0.9-1.2) 03/13/17 08:30 - Constitutional Appears: Chronically Ill - Head Exam Head Exam: ATRAUMATIC, NORMAL INSPECTION, NORMOCEPHALIC - Eye Exam Eye Exam: Normal appearance - ENT Exam ENT Exam: Mucous Membranes Moist - Neck Exam Neck Exam: Full ROM - Respiratory Exam Respiratory Exam: Clear to Ausculation Bilateral - Cardiovascular Exam Cardiovascular Exam: REGULAR RHYTHM, +S1, +S2 - GI/Abdominal Exam GI & Abdominal Exam: Soft, Normal Bowel Sounds - Extremities Exam Additional comments: less erythema and tenderness. - Neurological Exam Neurological Exam: Abnormal Gait, Altered - Psychiatric Exam Psychiatric exam: Flat Affect Assessment and Plan (1) Cellulitis Status: Acute (2) Multiple trauma Status: Acute (3) Gait abnormality Status: Acute (4) Ataxia Status: Acute (5) Pre-syncope Status: Suspected (6) TIA (transient ischemic attack) Status: Suspected (7) Hypertensive cardiovascular disease Status: Chronic (8) Dementia Status: Chronic (9) DVT (deep venous thrombosis) Status: Suspected (10) Non compliance w medication regimen Status: Chronic (11) Staph aureus infection Status: Acute - Assessment and Plan (Free Text) Plan: Acute Cellulites in the rt elbow.
[2017-03-14 13:02] LABS: FOLATE > 20.0 ng/mL
[2017-03-14 16:22] VITALS: O2SAT 95
[2017-03-15] MEDS: Ampicillin/Sulbactam 1.5 GM in Sodium Chloride 0.9% 100 ML IVPB SCH ×2 (01:00→09:08)
[2017-03-15 08:24] VITALS: BP 167/65; PULSE 70; TEMP 97.8
--- NOTE | 2017-03-15 08:51 | CP.PCM.DIS ---
Provider - Provider Date of Admission: 03/12/17 20:20 Attending physician: Luis Antonio MD Time Spent in preparation of Discharge (in minutes): 30 Diagnosis - Discharge Diagnosis (1) Cellulitis Status: Acute (2) Multiple trauma Status: Acute (3) Gait abnormality Status: Acute (4) Ataxia Status: Acute (5) Pre-syncope Status: Suspected (6) TIA (transient ischemic attack) Status: Suspected (7) Hypertensive cardiovascular disease Status: Chronic (8) Dementia Status: Chronic (9) DVT (deep venous thrombosis) Status: Suspected (10) Non compliance w medication regimen Status: Chronic (11) Staph aureus infection Status: Acute Hospital Course - Lab Results Lab Results: Micro Results 03/12/17 21:35 Elbow - Right Gram Stain - Final 03/12/17 21:35 Elbow - Right Wound Culture - Final Staphylococcus Aureus Most Recent Lab Values WBC 5.9 K/uL (4.8-10.8) 03/12/17 21:35 RBC 3.65 Mil/uL (4.40-5.90) L 03/12/17 21:35 Hgb 11.6 g/dL (12.0-18.0) L 03/12/17 21:35 Hct 34.8 % (35.0-51.0) L 03/12/17 21:35 MCV 95.4 fl (80.0-94.0) H 03/12/17 21:35 MCH 31.7 pg (27.0-31.0) H 03/12/17 21:35 MCHC 33.2 g/dL (33.0-37.0) 03/12/17 21:35 RDW 12.6 % (11.5-14.5) 03/12/17 21:35 Plt Count 125 K/uL (130-400) L 03/12/17 21:35 MPV 8.2 fl (7.2-11.7) 03/12/17 21:35 Neut % (Auto) 51.6 % (50.0-75.0) 03/12/17 21:35 Lymph % (Auto) 30.9 % (20.0-40.0) 03/12/17 21:35 [place]lin % (Auto) 16.6 % (0.0-10.0) H 03/12/17 21:35 Eos % (Auto) 0.3 % (0.0-4.0) 03/12/17 21:35 Baso % (Auto) 0.6 % (0.0-2.0) 03/12/17 21:35 Neut # 3.1 K/uL (1.8-7.0) 03/12/17 21:35 Lymph # 1.8 K/uL (1.0-4.3) 03/12/17 21:35 Hamlin # 1.0 K/uL (0.0-0.8) H 03/12/17 21:35 Eos # 0.0 K/uL (0.0-0.7) 03/12/17 21:35 Baso # 0.0 K/uL (0.0-0.2) 03/12/17 21:35 PT 11.9 Seconds (9.8-13.1) 03/13/17 08:30 INR 1.1 (0.9-1.2) 03/13/17 08:30 D-Dimer, Quantitative 405 ng/mlDDU (0-230) H 03/13/17 08:30 Sodium 139 mmol/l (132-148) 03/12/17 21:35 Potassium 3.8 MMOL/L (3.6-5.0) 03/12/17 21:35 Chloride 100 mmol/L (98-107) 03/12/17 21:35 Carbon Dioxide 29 mmol/L (22-30) 03/12/17 21:35 Anion Gap 15 (10-20) 03/12/17 21:35 BUN 15 mg/dl (9-20) 03/12/17 21:35 Creatinine 0.8 mg/dL (0.8-1.5) 03/12/17 21:35 Est GFR ( Amer) > 60 03/12/17 21:35 Est GFR (Non-Af Amer) > 60 03/12/17 21:35 Random Glucose 101 mg/dL (75-110) 03/12/17 21:35 Hemoglobin A1c 5.8 % (4.2-6.5) 03/13/17 11:43 Calcium 9.5 mg/dL (8.4-10.2) 03/12/17 21:35 Phosphorus 3.3 mg/dl (2.5-4.5) 03/12/17 21:35 Magnesium 2.0 MG/DL (1.6-2.3) 03/12/17 21:35 Total Bilirubin 0.9 mg/dl (0.2-1.3) 03/12/17 21:35 AST 29 U/L (17-59) 03/12/17 21:35 ALT 28 U/L (21-72) 03/12/17 21:35 Alkaline Phosphatase 55 U/L (38-126) 03/12/17 21:35 Troponin I < 0.0120 ng/mL (0.00-0.120) 03/13/17 08:30 Total Protein 7.0 G/DL (6.3-8.2) 03/12/17 21:35 Albumin 4.1 g/dL (3.5-5.0) 03/12/17 21:35 Globulin 2.9 gm/dL (2.2-3.9) 03/12/17 21:35 Albumin/Globulin Ratio 1.4 (1.0-2.1) 03/12/17 21:35 Vitamin B12 866 pg/mL (239-931) 03/14/17 05:30 Folate > 20.0 ng/mL 03/14/17 05:30 TSH 3rd Generation 2.74 mIU/ML (0.46-4.68) 03/13/17 08:30 Prolactin 12.8 ng/mL (3.7-17.9) 03/14/17 05:30 RPR Nonreactive (NONREACTIVE) 03/14/17 05:30 Blood Type A POSITIVE 03/12/17:35 Antibody Screen Negative 03/12/17 21:35 BBK History Checked No verified bt 03/12/17 21:35 - Hospital Course Hospital Course: Patient is a pleasant 86 y/o gentleman with hx of mild dementia, CAD, BPH, HTN, s/p pacemaker. He was walking in a park on 03/07 and missed when he fell on his RIGHT side. The hx is not clear if was by accident or secondary to vertigo or presyncopal episode. As per family has been frequently losing balance recently. He presented in ER with severe pain in the Rt side of his body severally incapacitated and and not able to walk. He c/o severe pain in his L/S , Rt hip, Rt knee, Rt foot and rt elbow where he present a large ecchymosis with erythema and stage 2/3 ulceration with same purulent discharge. Before this episode he was able to walk with no restriction. As per family patient not not c/o with medications. During hospitalization was started on iv antibx the open wound with cellulites secondary to s. aureus improved well. Patient in need of iv antibx until resolution of cellulites. Still severe debility in need of acute PT. Will transfer to TCU for further rx. Discharge Exam - Head Exam Head Exam: ATRAUMATIC, NORMOCEPHALIC - Eye Exam Eye Exam: Normal appearance - Neck Exam Neck exam: Full Rom - Respiratory Exam Respiratory Exam: Clear to PA & Lateral - Cardiovascular Exam Cardiovascular Exam: REGULAR RHYTHM, +S1, +S2 - GI/Abdominal Exam GI & Abdominal Exam: Normal Bowel Sounds - Extremities Exam Additional comments: same improvement of previous status - Neurological Exam Neurological exam: Altered - Psychiatric Exam Psychiatric exam: Flat Affect Discharge Plan - Discharge Medications Prescriptions: Ampicillin Sodium/Sulbactam Na [Ampicillin-Sulbactam 3 gm Vial] 3 gm IJ Q8 7 Days #24 vial - Follow Up Plan Condition: GUARDED Disposition: REHAB FACILITY/REHAB UNIT
[2017-03-15] MEDS: Lactobacillus Acidophilus 500 MU Cap PO SCH (09:08)
[2017-03-15] MEDS: Enoxaparin 40 mg Syringe SC SCH (09:08)
[2017-03-15] MEDS: Multivitamin With Minerals Tab PO SCH (09:09)
== END 2017-03-15 15:20 | DRG 603 ==
LOC: H.ER 16:42 → H.ERHOLD 20:20 → H.MEDSURG1 03-13 01:07
PROVIDERS: ADMIT Internal Medicine; ATTEND Internal Medicine
PROC: 3E0234Z Introduction of Serum, Toxoid and Vaccine into Muscle, Percutaneous Approach (ICD-10-PCS; principal; 2017-03-13)
DX: L03.113 Cellulitis of right upper limb (principal); F03.90 Unspecified dementia, unspecified severity, without behavioral disturbance, psychotic disturbance, mood disturbance, and anxiety; L98.499 Non-pressure chronic ulcer of skin of other sites with unspecified severity; S50.01XA Contusion of right elbow, initial encounter; I11.9 Hypertensive heart disease without heart failure; B95.61 Methicillin susceptible Staphylococcus aureus infection as the cause of diseases classified elsewhere; G62.9 Polyneuropathy, unspecified; R26.0 Ataxic gait; E78.5 Hyperlipidemia, unspecified; I25.10 Atherosclerotic heart disease of native coronary artery without angina pectoris; M54.5 Low back pain; R29.6 Repeated falls; R26.81 Unsteadiness on feet; N40.0 Benign prostatic hyperplasia without lower urinary tract symptoms; W01.0XXA Fall on same level from slipping, tripping and stumbling without subsequent striking against object, initial encounter; Z91.14 Patient's other noncompliance with medication regimen; Z23 Encounter for immunization; Z95.0 Presence of cardiac pacemaker; Y92.830 Public park as the place of occurrence of the external cause

== ENCOUNTER 2017-03-15 14:30 | Inpatient (IN) | payer OTHER, BC ==
[2017-03-15 15:30] VITALS: BMI 25.4
[2017-03-15 16:32] VITALS: RESP 20
[2017-03-15] MEDS: Lactobacillus Acidophilus 500 MU Cap PO SCH (17:32)
[2017-03-15] MEDS ORDERED: Ampicillin/Sulbactam 1.5 GM in Sodium Chloride 0.9% 100 ML IVPB SCH (18:00)
[2017-03-15] MEDS ORDERED: Ampicillin/Sulbactam 1.5 gm Inj IVPB SCH (21:00)
[2017-03-15] MEDS: Ampicillin/Sulbactam 1.5 GM in Sodium Chloride 0.9% 100 ML IVPB SCH (21:39)
[2017-03-16] MEDS: Ampicillin/Sulbactam 1.5 GM in Sodium Chloride 0.9% 100 ML IVPB SCH ×3 (05:32→20:57)
[2017-03-16 05:47] LABS: HEMATOCRIT 33.4 % (35.0-51.0); MEAN CELL VOLUME 93.5 fl (80.0-94.0); MEAN CORPUSCULAR HEMOGLOBIN 32.6 pg (27.0-31.0); MEAN CORPUSCULAR HGB CONC 34.9 g/dL (33.0-37.0); RED CELL DISTRIBUTION WIDTH 12.6 % (11.5-14.5); WHITE BLOOD COUNT 6.9 K/uL (4.8-10.8)
[2017-03-16 06:10] LABS: BLOOD UREA NITROGEN 20 mg/dl (9-20); CALCIUM 9.7 mg/dL (8.4-10.2); CARBON DIOXIDE 32 mmol/L (22-30); CHLORIDE 99 mmol/L (98-107); GFR AFRICAN-AMERICAN > 60; GLUCOSE,RANDOM 133 mg/dL (75-110); POTASSIUM 3.8 MMOL/L (3.6-5.0); SODIUM 138 mmol/l (132-148)
[2017-03-16 06:16] LABS: PARTIAL THROMBOPLASTIN TIME 29.8 Seconds (25.6-37.1)
--- NOTE | 2017-03-16 06:55 | CP.PCM.HP ---
History of Present Illness - History of Present Illness History of Present Illness: Patient is a pleasant 86 y/o gentleman with hx of mild dementia, CAD, BPH, HTN, s/p pacemaker. He was walking in a park on 03/07 and missed when he fell on his RIGHT side. The hx is not clear if was by accident or secondary to vertigo or presyncopal episode. As per family has been frequently losing balance recently. He presented in ER with severe pain in the Rt side of his body severally incapacitated and and not able to walk. He c/o severe pain in his L/S , Rt hip, Rt knee, Rt foot and rt elbow where he present a large ecchymosis with erythema. Before this episode he was able to walk with no restriction. As per family patient not not c/o with medications. During hospitalization was started on iv antibx the open wound with cellulites secondary to s. aureus improved well. Patient in need of iv antibx until resolution of cellulites. Still severe debility in need of acute PT. Will transfer to TCU for further rx and PT Present on Admission - Present on Admission Any Indicators Present on Admission: No Review of Systems - Constitutional Constitutional: As Per HPI - EENT Nose/Mouth/Throat: As Per HPI - Cardiovascular Cardiovascular: As Per HPI - Respiratory Respiratory: As Per HPI - Gastrointestinal Gastrointestinal: As Per HPI - Neurological Neurological: As Per HPI Past Patient History - Infectious Disease Hx of Infectious Diseases: None - Past Medical History & Family History Past Medical History?: Yes - Past Social History Smoking Status: Never Smoked - CARDIAC Hx Hypercholesterolemia: Yes Hx Hypertension: Yes Hx Pacemaker: Yes - PULMONARY Hx Respiratory Disorders: No - NEUROLOGICAL Hx Dementia: Yes - HEENT Hx HEENT Problems: No - RENAL Hx Chronic Kidney Disease: No - ENDOCRINE/METABOLIC Hx Endocrine Disorders: No - HEMATOLOGICAL/ONCOLOGICAL Hx Blood Disorders: No Hx AIDS: No Hx Human Immunodeficiency Virus (HIV): No - INTEGUMENTARY Hx Dermatological Problems: No - MUSCULOSKELETAL/RHEUMATOLOGICAL Hx Falls: Yes - GASTROINTESTINAL Hx Gastrointestinal Disorders: No - GENITOURINARY/GYNECOLOGICAL Hx Prostate Problems: Yes (bph) - PSYCHIATRIC Hx Substance Use: No - SURGICAL HISTORY Other/Comment: pacemaker - ANESTHESIA Hx Anesthesia: Yes Hx Anesthesia Reactions: No Hx Malignant Hyperthermia: No Meds Allergies/Adverse Reactions: Allergies Allergy/AdvReac Type Severity Reaction Status Date / Time No Known Allergies Allergy Verified 03/15/17 15:30 Physical Exam - Constitutional Appears: Non-toxic, No Acute Distress - Head Exam Head Exam: ATRAUMATIC, NORMAL INSPECTION, NORMOCEPHALIC - Eye Exam Eye Exam: Normal appearance - ENT Exam ENT Exam: Mucous Membranes Moist - Neck Exam Neck exam: Positive for: Normal Inspection - Respiratory Exam Respiratory Exam: Clear to Auscultation Bilateral, NORMAL BREATHING PATTERN - Cardiovascular Exam Cardiovascular Exam: REGULAR RHYTHM, +S1, +S2 - GI/Abdominal Exam GI & Abdominal Exam: Normal Bowel Sounds, Soft - Neurological Exam Neurological exam: Altered Results - Vital Signs Recent Vital Signs: Last Vital Signs Temp 97.9 F 03/15/17 21:23 Pulse 84 03/15/17 21:23 Resp 20 03/15/17 21:23 BP 159/75 H 03/15/17 21:23 Pulse Ox 93 L 03/15/17 21:23 - Labs Result Diagrams: 03/16/17 05:20 03/16/17 05:20 Labs: Laboratory Results - last 24 hr 03/16/17 03/16/17 03/16/17 05:20 05:20 05:20 WBC 6.9 RBC 3.57 L Hgb 11.7 L Hct 33.4 L MCV 93.5 MCH 32.6 H MCHC 34.9 RDW 12.6 Plt Count 136 PT 13.7 H INR 1.2 APTT 29.8 Sodium 138 Potassium 3.8 Chloride 99 Carbon Dioxide 32 H Anion Gap 11 BUN 20 Creatinine 0.9 Est GFR ( Amer) > 60 Est GFR (Non-Af Amer) > 60 Random Glucose 133 H Calcium 9.7 Assessment & Plan (1) Ataxia Status: Acute (2) Cellulitis Status: Acute (3) Gait abnormality Status: Acute (4) Multiple trauma Status: Acute (5) Staph aureus infection Status: Acute (6) Dementia Status: Chronic (7) Hypertensive cardiovascular disease Status: Chronic (8) DVT (deep venous thrombosis) Status: Suspected (9) Pre-syncope Status: Suspected
[2017-03-16] MEDS: Enoxaparin 40 mg Syringe SC SCH (08:30)
[2017-03-16] MEDS: Lactobacillus Acidophilus 500 MU Cap PO SCH ×2 (08:30→17:21)
[2017-03-16] MEDS: Multivitamin With Minerals Tab PO SCH (08:31)
[2017-03-17] MEDS ORDERED: Ampicillin/Sulbactam 1.5 GM in Sodium Chloride 0.9% 100 ML IVPB ONE (05:00)
[2017-03-17] MEDS: Ampicillin/Sulbactam 1.5 GM in Sodium Chloride 0.9% 100 ML IVPB SCH ×3 (05:49→21:17)
[2017-03-17] MEDS: Lactobacillus Acidophilus 500 MU Cap PO SCH ×2 (08:18→17:00)
[2017-03-17] MEDS: Multivitamin With Minerals Tab PO SCH (08:19)
[2017-03-17] MEDS: Enoxaparin 40 mg Syringe SC SCH (08:20)
--- NOTE | 2017-03-17 12:17 | RAD ---
PROCEDURE: Right Foot Radiographs. HISTORY: rt foot swelling COMPARISON: None. FINDINGS: BONES: Limited examination consists of only two views. No oblique view submitted. No acute fracture. Rounded lucency overlying proximal diaphysis of 3rd metatarsal, uncertain significance. Further evaluation suggested. Consider complete foot three-view examination. No other lytic or blastic osseous lesion. JOINTS: Normal. SOFT TISSUES: Normal. OTHER FINDINGS: None. IMPRESSION: Limited examination. Rounded circumscribed lucency overlying proximal diaphysis of 3rd metatarsal. Recommend additional evaluation.
--- NOTE | 2017-03-17 12:21 | RAD ---
PROCEDURE: Right Ankle Radiographs. HISTORY: swollen rt foot COMPARISON: None FINDINGS: BONES: Normal. No fracture. JOINTS: Normal. No osteoarthritis. Ankle mortise maintained. Talar dome intact SOFT TISSUES: Mild lateral soft tissue swelling. OTHER FINDINGS: None. IMPRESSION: No fracture. Mild lateral soft tissue swelling.
--- NOTE | 2017-03-17 14:12 | RAD ---
PROCEDURE: Right Knee Radiographs. HISTORY: rt lower ext. swelling COMPARISON: None. FINDINGS: BONES: No acute fracture. JOINTS: Mild tricompartmental osteoarthritis. No articular erosion. Lateral chondrocalcinosis. JOINT EFFUSION: Small joint effusion. OTHER FINDINGS: None. IMPRESSION: Mild tricompartmental osteoarthritis. Small joint effusion and lateral chondrocalcinosis.
--- NOTE | 2017-03-17 17:11 | CP.PCM.PN ---
Subjective - Date & Time of Evaluation Date of Evaluation: 03/17/17 Time of Evaluation: 17:11 - Subjective Subjective: Patient with no new c/o Objective - Vital Signs/Intake and Output Vital Signs (last 24 hours): Temp Pulse Resp BP Pulse Ox 98.1 F 94 H 20 141/63 97 03/17/17 16:24 03/17/17 16:24 03/17/17 16:24 03/17/17 16:24 03/17/17 16:24 - Medications Medications: Current Medications Atorvastatin Calcium (Lipitor) 10 mg PO DAILY [facility] Last Admin: 03/17/17 08:19 Dose: 10 mg Docusate Sodium (Colace) 100 mg PO BID [facility] Last Admin: 03/17/17 16:59 Dose: 100 mg Enoxaparin Sodium (Lovenox) 40 mg SC DAILY [facility] PRN Reason: Protocol Last Admin: 03/17/17 08:20 Dose: 40 mg Hydrochlorothiazide (Microzide) 12.5 mg PO DAILY [facility] Last Admin: 03/17/17 08:19 Dose: 12.5 mg Ampicillin Sodium/Sulbactam (Sodium 1.5 gm/ Sodium Chloride) 100 mls @ 100 mls/ hr IVPB Q8@0500,1300,2100 [facility] Last Admin: 03/17/17 12:55 Dose: 100 mls/hr Lactobacillus Acidophilus (Bacid Acidophilus) 1 cap PO BID [facility] Last Admin: 03/17/17 17:00 Dose: 1 cap Memantine (Namenda) 5 mg PO HS [facility] Last Admin: 03/16/17 21:50 Dose: 5 mg Multivitamins/Minerals (Therapeutic-M Tab) 1 tab PO DAILY [facility] Last Admin: 03/17/17 08:19 Dose: 1 tab Sodium Phosphate (Fleet Enema) 135 ml [place] ONCE PRN PRN Reason: Constipation Valsartan (Diovan) 80 mg PO DAILY [facility] Last Admin: 03/17/17 08:19 Dose: 80 mg - Labs Labs: 03/16/17 05:20 03/16/17 05:20 PT 13.7 Seconds (9.8-13.1) H 03/16/17 05:20 INR 1.2 (0.9-1.2) 03/16/17 05:20 APTT 29.8 Seconds (25.6-37.1) 03/16/17 05:20 - Constitutional Appears: Non-toxic - Head Exam Head Exam: ATRAUMATIC, NORMAL INSPECTION, NORMOCEPHALIC - Eye Exam Eye Exam: Normal appearance - ENT Exam ENT Exam: Mucous Membranes Moist - Neck Exam Neck Exam: Full ROM - Respiratory Exam Respiratory Exam: Clear to Ausculation Bilateral - Cardiovascular Exam Cardiovascular Exam: REGULAR RHYTHM, +S1, +S2 - GI/Abdominal Exam GI & Abdominal Exam: Soft, Normal Bowel Sounds - Extremities Exam Additional comments: rt foot edema - Neurological Exam Neurological Exam: Alert, Awake - Psychiatric Exam Psychiatric exam: Flat Affect, Normal Affect Assessment and Plan (1) Ataxia Status: Acute (2) Cellulitis Status: Acute (3) Gait abnormality Status: Acute (4) Multiple trauma Status: Acute (5) Staph aureus infection Status: Acute (6) Dementia Status: Chronic (7) Hypertensive cardiovascular disease Status: Chronic (8) DVT (deep venous thrombosis) Status: Suspected (9) Pre-syncope Status: Suspected (10) BPH (benign prostatic hyperplasia) Status: Chronic (11) PSA elevation Status: Acute - Assessment and Plan (Free Text) Plan: Continue present rx F/U with consultants.
[2017-03-17 17:12] LABS: RBC URINE 9 /hpf (0-3); URINE BILIRUBIN NEGATIVE (NEGATIVE); URINE BLOOD SMALL (NEGATIVE); URINE COLOR YELLOW (YELLOW); URINE GLUCOSE (UA) NEG (Normal); URINE KETONE NEGATIVE (NEGATIVE); URINE LEUKOCYTE ESTERASE NEG Leu/uL (Negative); URINE PROTEIN 100 mg/dL (NEGATIVE); URINE UROBILINOGEN 0.2-1.0 mg/dL (0.2-1.0); WBC URINE 3 /hpf (0-5)
[2017-03-18] MEDS: Ampicillin/Sulbactam 1.5 GM in Sodium Chloride 0.9% 100 ML IVPB SCH ×3 (05:40→21:02)
[2017-03-18 06:42] LABS: BLOOD UREA NITROGEN 25 mg/dl (9-20); CALCIUM 9.6 mg/dL (8.4-10.2); CARBON DIOXIDE 32 mmol/L (22-30); CHLORIDE 96 mmol/L (98-107); GFR AFRICAN-AMERICAN > 60; GLUCOSE,RANDOM 124 mg/dL (75-110); POTASSIUM 3.8 MMOL/L (3.6-5.0); SODIUM 139 mmol/l (132-148)
[2017-03-18 07:31] LABS: TOTAL PROTEIN, SERUM 7.1 g/dL (6.1-8.1)
[2017-03-18] MEDS: Multivitamin With Minerals Tab PO SCH (08:44)
[2017-03-18] MEDS: Enoxaparin 40 mg Syringe SC SCH (08:45)
[2017-03-18] MEDS: Lactobacillus Acidophilus 500 MU Cap PO SCH ×2 (08:47→17:34)
--- NOTE | 2017-03-18 13:21 | RAD ---
PROCEDURE: Cervical spine two views HISTORY: Pain. No history of recent/ related trauma provided COMPARISON: None TECHNIQUE: AP and lateral views only FINDINGS: Unremarkable cervical vertebral bodies and alignment. Preserved C1-C2 relationship. Reversal of the anatomic lordosis with kyphosis Degenerative changes: Mild primarily affecting lower cervical spine C5-6. IMPRESSION: No acute findings related to/accounting for the clinical presentation.
--- NOTE | 2017-03-18 13:27 | CP.PCM.PN ---
Subjective - Date & Time of Evaluation Date of Evaluation: 03/18/17 Time of Evaluation: 13:29 - Subjective Subjective: Patient c/o same cervicalgia, no migraine, no neuro deficit, no CP, no N/V, no abd pain Objective - Vital Signs/Intake and Output Vital Signs (last 24 hours): Temp Pulse Resp BP Pulse Ox 97.6 F 62 20 150/67 99 03/18/17 08:35 03/18/17 08:35 03/18/17 08:35 03/18/17 08:35 03/18/17 08:35 - Medications Medications: Current Medications Acetaminophen (Tylenol 325mg Tab) 650 mg PO Q6 PRN PRN Reason: Pain, Mild (1-3) Last Admin: 03/18/17 06:17 Dose: 650 mg Atorvastatin Calcium (Lipitor) 10 mg PO DAILY [facility] Last Admin: 03/18/17 08:45 Dose: 10 mg Docusate Sodium (Colace) 100 mg PO BID [facility] Last Admin: 03/18/17 08:44 Dose: 100 mg Enoxaparin Sodium (Lovenox) 40 mg SC DAILY [facility] PRN Reason: Protocol Last Admin: 03/18/17 08:45 Dose: 40 mg Hydrochlorothiazide (Microzide) 12.5 mg PO DAILY [facility] Last Admin: 03/18/17 08:45 Dose: 12.5 mg Ampicillin Sodium/Sulbactam (Sodium 1.5 gm/ Sodium Chloride) 100 mls @ 100 mls/ hr IVPB Q8@0500,1300,2100 [facility] Last Admin: 03/18/17 13:01 Dose: 100 mls/hr Lactobacillus Acidophilus (Bacid Acidophilus) 1 cap PO BID [facility] Last Admin: 03/18/17 08:47 Dose: 1 cap Memantine (Namenda) 5 mg PO HS [facility] Last Admin: 03/17/17 21:18 Dose: 5 mg Multivitamins/Minerals (Therapeutic-M Tab) 1 tab PO DAILY [facility] Last Admin: 03/18/17 08:44 Dose: 1 tab Sodium Phosphate (Fleet Enema) 135 ml [place] ONCE PRN PRN Reason: Constipation Last Admin: 03/17/17 22:36 Dose: 135 ml Valsartan (Diovan) 80 mg PO DAILY [facility] Last Admin: 03/18/17 08:45 Dose: 80 mg - Labs Labs: 03/16/17 05:20 03/18/17 05:50 PT 13.7 Seconds (9.8-13.1) H 03/16/17 05:20 INR 1.2 (0.9-1.2) 03/16/17 05:20 APTT 29.8 Seconds (25.6-37.1) 03/16/17 05:20 - Constitutional Appears: No Acute Distress - Head Exam Head Exam: ATRAUMATIC, NORMAL INSPECTION, NORMOCEPHALIC Additional comments: + muscle spasm in paraspinal area - Eye Exam Eye Exam: EOMI - ENT Exam ENT Exam: Mucous Membranes Moist - Respiratory Exam Respiratory Exam: Clear to Ausculation Bilateral - Cardiovascular Exam Cardiovascular Exam: REGULAR RHYTHM, +S1, +S2 - GI/Abdominal Exam GI & Abdominal Exam: Soft, Normal Bowel Sounds - Extremities Exam Extremities Exam: Normal Inspection - Neurological Exam Neurological Exam: Alert, Awake, Oriented x3 - Psychiatric Exam Psychiatric exam: Normal Affect Assessment and Plan (1) Ataxia Status: Acute (2) Cellulitis Status: Acute (3) Gait abnormality Status: Acute (4) Multiple trauma Status: Acute (5) Staph aureus infection Status: Acute (6) Dementia Status: Chronic (7) Hypertensive cardiovascular disease Status: Chronic (8) DVT (deep venous thrombosis) Status: Suspected (9) Pre-syncope Status: Suspected (10) BPH (benign prostatic hyperplasia) Status: Chronic (11) PSA elevation Status: Acute (12) Cervicalgia Status: Acute - Assessment and Plan (Free Text) Plan: Continue present rx
[2017-03-19] MEDS: Ampicillin/Sulbactam 1.5 GM in Sodium Chloride 0.9% 100 ML IVPB SCH ×3 (05:47→21:48)
[2017-03-19] MEDS: Lactobacillus Acidophilus 500 MU Cap PO SCH ×2 (08:32→16:22)
[2017-03-19] MEDS: Multivitamin With Minerals Tab PO SCH (08:33)
[2017-03-19] MEDS: Enoxaparin 40 mg Syringe SC SCH (08:33)
--- NOTE | 2017-03-19 15:58 | US ---
PROCEDURE: Ultrasound of urinary bladder HISTORY: BPA COMPARISON: Not available TECHNIQUE: Transabdominal FINDINGS: The distended urinary bladder measures 284.41 mL. There is no intraluminal mass. The wall is thin and smooth. Ureteral jets are not visualized. The postvoid residual within the urinary bladder is 55.6 mL. The prostate measures 21.84 mL. IMPRESSION: 55.6 mL postvoid residual in the urinary bladder.
[2017-03-20 04:42] LABS: BETA 1 GLOBULIN 0.4 g/dL (0.4-0.6); BETA 2 GLOBULIN 0.5 g/dL (0.2-0.5)
[2017-03-20] MEDS: Ampicillin/Sulbactam 1.5 GM in Sodium Chloride 0.9% 100 ML IVPB SCH ×3 (05:32→23:59)
--- NOTE | 2017-03-20 09:43 | CP.PCM.PN ---
Subjective - Date & Time of Evaluation Date of Evaluation: 03/19/17 Time of Evaluation: 14:00 - Subjective Subjective: More comfortable Objective - Vital Signs/Intake and Output Vital Signs (last 24 hours): Temp Pulse Resp BP Pulse Ox 97 F L 60 20 150/63 95 03/20/17 08:33 03/20/17 08:33 03/20/17 08:33 03/20/17 08:33 03/20/17 08:33 - Medications Medications: Current Medications Acetaminophen (Tylenol 325mg Tab) 650 mg PO Q6 PRN PRN Reason: Pain, Mild (1-3) Last Admin: 03/18/17 21:14 Dose: 650 mg Atorvastatin Calcium (Lipitor) 10 mg PO DAILY [facility] Last Admin: 03/19/17 08:33 Dose: 10 mg Docusate Sodium (Colace) 100 mg PO BID [facility] Last Admin: 03/19/17 16:22 Dose: 100 mg Hydrochlorothiazide (Microzide) 12.5 mg PO DAILY [facility] Last Admin: 03/19/17 08:33 Dose: 12.5 mg Ampicillin Sodium/Sulbactam (Sodium 1.5 gm/ Sodium Chloride) 100 mls @ 100 mls/ hr IVPB Q8@0500,1300,2100 [facility] Last Admin: 03/20/17 05:32 Dose: 100 mls/hr Lactobacillus Acidophilus (Bacid Acidophilus) 1 cap PO BID [facility] Last Admin: 03/19/17 16:22 Dose: 1 cap Memantine (Namenda) 5 mg PO HS [facility] Last Admin: 03/19/17 21:48 Dose: 5 mg Multivitamins/Minerals (Therapeutic-M Tab) 1 tab PO DAILY [facility] Last Admin: 03/19/17 08:33 Dose: 1 tab Sodium Phosphate (Fleet Enema) 135 ml [place] ONCE PRN PRN Reason: Constipation Last Admin: 03/17/17 22:36 Dose: 135 ml Valsartan (Diovan) 80 mg PO DAILY [facility] Last Admin: 03/19/17 08:33 Dose: 80 mg - Labs Labs: 03/16/17 05:20 03/18/17 05:50 PT 13.7 Seconds (9.8-13.1) H 03/16/17 05:20 INR 1.2 (0.9-1.2) 03/16/17 05:20 APTT 29.8 Seconds (25.6-37.1) 03/16/17 05:20 - Constitutional Appears: No Acute Distress - Head Exam Head Exam: ATRAUMATIC, NORMAL INSPECTION, NORMOCEPHALIC - Eye Exam Eye Exam: Normal appearance - ENT Exam ENT Exam: Mucous Membranes Moist - Neck Exam Neck Exam: Full ROM - Respiratory Exam Respiratory Exam: Clear to Ausculation Bilateral - Cardiovascular Exam Cardiovascular Exam: REGULAR RHYTHM, +S1, +S2 - GI/Abdominal Exam GI & Abdominal Exam: Soft, Normal Bowel Sounds - Neurological Exam Neurological Exam: Alert, Awake, Oriented x3 - Psychiatric Exam Psychiatric exam: Normal Affect Assessment and Plan (1) Ataxia Status: Acute (2) Cellulitis Status: Acute (3) Gait abnormality Status: Acute (4) Multiple trauma Status: Acute (5) Staph aureus infection Status: Acute (6) Dementia Status: Chronic (7) Hypertensive cardiovascular disease Status: Chronic (8) DVT (deep venous thrombosis) Status: Suspected (9) Pre-syncope Status: Suspected (10) BPH (benign prostatic hyperplasia) Status: Chronic (11) PSA elevation Status: Acute (12) Cervicalgia Status: Acute
[2017-03-20] MEDS: Multivitamin With Minerals Tab PO SCH (10:11)
[2017-03-20] MEDS: Lactobacillus Acidophilus 500 MU Cap PO SCH ×2 (10:15→18:30)
--- NOTE | 2017-03-20 12:08 | CP.PCM.CON ---
History of Present Illness - History of Present Illness History of Present Illness: This is a 86 yrs old male who was admitted after a fall after which he started c /o pain, and did not want to get out of bed. He claims that he has been a little shaky even before the fall. In the hospital he was found to have no fractures. He has some osteoarthritis but no lytic lesions. His cbc is normal except for a mild anemia, Chemistry does not show renal problems or elevated globulin. A SPE was done which showed a faint polyclonal gammopathy. The urine shows proteinuria. A myeloma was suspected so I was asked to see the pt. He hs a past medical history of dementia, HTN and a pacemaker placed. Past Patient History - Infectious Disease Hx of Infectious Diseases: None - Past Medical History & Family History Past Medical History?: Yes - Past Social History Smoking Status: Never Smoked - CARDIAC Hx Hypercholesterolemia: Yes Hx Hypertension: Yes Hx Pacemaker: Yes - PULMONARY Hx Respiratory Disorders: No - NEUROLOGICAL Hx Dementia: Yes - HEENT Hx HEENT Problems: No - RENAL Hx Chronic Kidney Disease: No - ENDOCRINE/METABOLIC Hx Endocrine Disorders: No - HEMATOLOGICAL/ONCOLOGICAL Hx Blood Disorders: No Hx AIDS: No Hx Human Immunodeficiency Virus (HIV): No - INTEGUMENTARY Hx Dermatological Problems: No - MUSCULOSKELETAL/RHEUMATOLOGICAL Hx Falls: Yes - GASTROINTESTINAL Hx Gastrointestinal Disorders: No - GENITOURINARY/GYNECOLOGICAL Hx Prostate Problems: Yes (bph) - PSYCHIATRIC Hx Substance Use: No - SURGICAL HISTORY Other/Comment: pacemaker - ANESTHESIA Hx Anesthesia: Yes Hx Anesthesia Reactions: No Hx Malignant Hyperthermia: No Meds Allergies/Adverse Reactions: Allergies Allergy/AdvReac Type Severity Reaction Status Date / Time No Known Allergies Allergy Verified 03/15/17 15:30 - Medications Medications: Current Medications Acetaminophen (Tylenol 325mg Tab) 650 mg PO Q6 PRN PRN Reason: Pain, Mild (1-3) Last Admin: 03/18/17 21:14 Dose: 650 mg Atorvastatin Calcium (Lipitor) 10 mg PO DAILY [facility] Last Admin: 03/20/17 10:11 Dose: 10 mg Docusate Sodium (Colace) 100 mg PO BID [facility] Last Admin: 03/20/17 10:10 Dose: 100 mg Hydrochlorothiazide (Microzide) 12.5 mg PO DAILY [facility] Last Admin: 03/20/17 10:11 Dose: 12.5 mg Ampicillin Sodium/Sulbactam (Sodium 1.5 gm/ Sodium Chloride) 100 mls @ 100 mls/ hr IVPB Q8@0500,1300,2100 [facility] Last Admin: 03/20/17 05:32 Dose: 100 mls/hr Lactobacillus Acidophilus (Bacid Acidophilus) 1 cap PO BID [facility] Last Admin: 03/20/17 10:15 Dose: 1 cap Memantine (Namenda) 5 mg PO HS [facility] Last Admin: 03/19/17 21:48 Dose: 5 mg Multivitamins/Minerals (Therapeutic-M Tab) 1 tab PO DAILY [facility] Last Admin: 03/20/17 10:11 Dose: 1 tab Sodium Phosphate (Fleet Enema) 135 ml [place] ONCE PRN PRN Reason: Constipation Last Admin: 03/17/17 22:36 Dose: 135 ml Valsartan (Diovan) 80 mg PO DAILY [facility] Last Admin: 03/20/17 10:10 Dose: 80 mg Physical Exam - Additional Findings Additional findings: Physicaltherapy; Alert, well oriented in no acute distress neck; Supple, no adenopathy Chest; clesr, no rales or rhonchi Heart; RSR, no murmur Abd; Soft, no mass, no h.s megaly Results - Vital Signs Recent Vital Signs: Last Vital Signs Temp 97 F L 03/20/17 08:33 Pulse 60 03/20/17 08:33 Resp 20 03/20/17 08:33 BP 150/63 03/20/17 08:33 Pulse Ox 95 03/20/17 08:33 - Labs Result Diagrams: 03/16/17 05:20 03/18/17 05:50 Labs: Laboratory Results - last 24 hr 03/17/17 16:02 Albumin (PEP) 3.3 L Gxfno-3-Jptusbooq 0.6 H Wkrwa-8-Kxngfdjzy 1.2 H Urgk-2-Orruebpy 0.4 Cevm-0-Vljbxiuy 0.5 Gamma Globulins 1.0 Abnorm Protein Band 1 TEST NOT PERFORMED Abnorm Protein Band 2 TEST NOT PERFORMED Abnorm Protein Band 3 TEST NOT PERFORMED BRENDA & SPEP Interp See note Assessment & Plan - Assessment and Plan (Free Text) Assessment: impression; Mild proteinuria with a faint polyclonal spikes in the SPE. Plan: Plan Will order immunofixation and test for light chain myeloma
--- NOTE | 2017-03-20 12:46 | CP.PCM.PN ---
Subjective - Date & Time of Evaluation Date of Evaluation: 03/20/17 Time of Evaluation: 12:47 - Subjective Subjective: Patietn looks comfortable not in distress. Objective - Vital Signs/Intake and Output Vital Signs (last 24 hours): Temp Pulse Resp BP Pulse Ox 97 F L 60 20 150/63 95 03/20/17 08:33 03/20/17 08:33 03/20/17 08:33 03/20/17 08:33 03/20/17 08:33 - Medications Medications: Current Medications Acetaminophen (Tylenol 325mg Tab) 650 mg PO Q6 PRN PRN Reason: Pain, Mild (1-3) Last Admin: 03/18/17 21:14 Dose: 650 mg Atorvastatin Calcium (Lipitor) 10 mg PO DAILY [facility] Last Admin: 03/20/17 10:11 Dose: 10 mg Docusate Sodium (Colace) 100 mg PO BID [facility] Last Admin: 03/20/17 10:10 Dose: 100 mg Hydrochlorothiazide (Microzide) 12.5 mg PO DAILY [facility] Last Admin: 03/20/17 10:11 Dose: 12.5 mg Ampicillin Sodium/Sulbactam (Sodium 1.5 gm/ Sodium Chloride) 100 mls @ 100 mls/ hr IVPB Q8@0500,1300,2100 [facility] Last Admin: 03/20/17 05:32 Dose: 100 mls/hr Lactobacillus Acidophilus (Bacid Acidophilus) 1 cap PO BID [facility] Last Admin: 03/20/17 10:15 Dose: 1 cap Memantine (Namenda) 5 mg PO HS [facility] Last Admin: 03/19/17 21:48 Dose: 5 mg Multivitamins/Minerals (Therapeutic-M Tab) 1 tab PO DAILY [facility] Last Admin: 03/20/17 10:11 Dose: 1 tab Sodium Phosphate (Fleet Enema) 135 ml [place] ONCE PRN PRN Reason: Constipation Last Admin: 03/17/17 22:36 Dose: 135 ml Valsartan (Diovan) 80 mg PO DAILY [facility] Last Admin: 03/20/17 10:10 Dose: 80 mg - Labs Labs: 03/16/17 05:20 03/18/17 05:50 PT 13.7 Seconds (9.8-13.1) H 03/16/17 05:20 INR 1.2 (0.9-1.2) 03/16/17 05:20 APTT 29.8 Seconds (25.6-37.1) 03/16/17 05:20 - Constitutional Appears: No Acute Distress - Head Exam Head Exam: ATRAUMATIC, NORMAL INSPECTION, NORMOCEPHALIC - Eye Exam Eye Exam: Normal appearance - ENT Exam ENT Exam: Mucous Membranes Moist - Neck Exam Neck Exam: Full ROM - Respiratory Exam Respiratory Exam: Clear to Ausculation Bilateral - Cardiovascular Exam Cardiovascular Exam: REGULAR RHYTHM, +S1, +S2 - GI/Abdominal Exam GI & Abdominal Exam: Soft, Normal Bowel Sounds - Neurological Exam Neurological Exam: Abnormal Gait, Alert, Awake, Oriented x3 - Psychiatric Exam Psychiatric exam: Normal Affect Assessment and Plan (1) Ataxia Status: Acute (2) Cellulitis Status: Acute (3) Gait abnormality Status: Acute (4) Multiple trauma Status: Acute (5) Staph aureus infection Status: Acute (6) Dementia Status: Chronic (7) Hypertensive cardiovascular disease Status: Chronic (8) DVT (deep venous thrombosis) Status: Suspected (9) Pre-syncope Status: Suspected (10) BPH (benign prostatic hyperplasia) Status: Chronic (11) PSA elevation Status: Acute (12) Cervicalgia Status: Acute
[2017-03-21] MEDS: Multivitamin With Minerals Tab PO SCH (08:59)
[2017-03-21] MEDS: Lactobacillus Acidophilus 500 MU Cap PO SCH ×2 (09:00→16:48)
--- NOTE | 2017-03-21 10:23 | CP.PCM.PN ---
Subjective - Date & Time of Evaluation Date of Evaluation: 03/21/17 Time of Evaluation: 10:22 - Subjective Subjective: Patient comfortable. Objective - Vital Signs/Intake and Output Vital Signs (last 24 hours): Temp Pulse Resp BP Pulse Ox 97.7 F 60 20 149/62 98 03/21/17 08:22 03/21/17 08:22 03/21/17 08:22 03/21/17 08:22 03/21/17 08:22 - Medications Medications: Current Medications Acetaminophen (Tylenol 325mg Tab) 650 mg PO Q6 PRN PRN Reason: Pain, Mild (1-3) Last Admin: 03/21/17 02:42 Dose: 650 mg Atorvastatin Calcium (Lipitor) 10 mg PO DAILY [facility] Last Admin: 03/21/17 08:58 Dose: 10 mg Docusate Sodium (Colace) 100 mg PO BID [facility] Last Admin: 03/21/17 08:58 Dose: 100 mg Hydrochlorothiazide (Microzide) 12.5 mg PO DAILY [facility] Last Admin: 03/21/17 08:59 Dose: 12.5 mg Lactobacillus Acidophilus (Bacid Acidophilus) 1 cap PO BID [facility] Last Admin: 03/21/17 09:00 Dose: 1 cap Memantine (Namenda) 5 mg PO HS [facility] Last Admin: 03/20/17 22:59 Dose: 5 mg Multivitamins/Minerals (Therapeutic-M Tab) 1 tab PO DAILY [facility] Last Admin: 03/21/17 08:59 Dose: 1 tab Sodium Phosphate (Fleet Enema) 135 ml [place] ONCE PRN PRN Reason: Constipation Last Admin: 03/17/17 22:36 Dose: 135 ml Valsartan (Diovan) 80 mg PO DAILY [facility] Last Admin: 03/21/17 08:58 Dose: 80 mg - Labs Labs: 03/16/17 05:20 03/18/17 05:50 PT 13.7 Seconds (9.8-13.1) H 03/16/17 05:20 INR 1.2 (0.9-1.2) 03/16/17 05:20 APTT 29.8 Seconds (25.6-37.1) 03/16/17 05:20 - Constitutional Appears: Non-toxic - Head Exam Head Exam: ATRAUMATIC, NORMAL INSPECTION, NORMOCEPHALIC - Eye Exam Eye Exam: EOMI - ENT Exam ENT Exam: Mucous Membranes Moist - Neck Exam Neck Exam: Full ROM - Respiratory Exam Respiratory Exam: Clear to Ausculation Bilateral - Cardiovascular Exam Cardiovascular Exam: REGULAR RHYTHM, +S1, +S2 - GI/Abdominal Exam GI & Abdominal Exam: Soft, Normal Bowel Sounds - Neurological Exam Neurological Exam: Alert, Awake, Oriented x3 - Psychiatric Exam Psychiatric exam: Normal Affect - Skin Skin Exam: Normal Color Assessment and Plan (1) Ataxia Status: Acute (2) Cellulitis Status: Acute (3) Gait abnormality Status: Acute (4) Multiple trauma Status: Acute (5) Staph aureus infection Status: Acute (6) Dementia Status: Chronic (7) Hypertensive cardiovascular disease Status: Chronic (8) DVT (deep venous thrombosis) Status: Suspected (9) Pre-syncope Status: Suspected (10) BPH (benign prostatic hyperplasia) Status: Chronic (11) PSA elevation Status: Acute (12) Cervicalgia Status: Acute - Assessment and Plan (Free Text) Plan: Continue present rx
[2017-03-21 12:20] LABS: ALKALINE PHOSPHATASE 56 U/L (40-115)
[2017-03-22] MEDS: Multivitamin With Minerals Tab PO SCH (08:22)
[2017-03-22] MEDS: Lactobacillus Acidophilus 500 MU Cap PO SCH ×2 (10:00→17:33)
--- NOTE | 2017-03-22 11:00 | CP.PCM.PN ---
Subjective - Date & Time of Evaluation Date of Evaluation: 03/22/17 Time of Evaluation: 11:00 - Subjective Subjective: Patient not in distress, comfortable. Objective - Vital Signs/Intake and Output Vital Signs (last 24 hours): Temp Pulse Resp BP Pulse Ox 97.0 F L 63 20 141/69 98 03/22/17 08:19 03/22/17 08:19 03/22/17 08:19 03/22/17 08:19 03/22/17 08:19 - Medications Medications: Current Medications Acetaminophen (Tylenol 325mg Tab) 650 mg PO Q6 PRN PRN Reason: Pain, Mild (1-3) Last Admin: 03/21/17 02:42 Dose: 650 mg Atorvastatin Calcium (Lipitor) 10 mg PO DAILY [facility] Last Admin: 03/22/17 08:22 Dose: 10 mg Docusate Sodium (Colace) 100 mg PO BID [facility] Last Admin: 03/22/17 08:22 Dose: 100 mg Hydrochlorothiazide (Microzide) 12.5 mg PO DAILY [facility] Last Admin: 03/22/17 08:22 Dose: 12.5 mg Lactobacillus Acidophilus (Bacid Acidophilus) 1 cap PO BID [facility] Last Admin: 03/21/17 16:48 Dose: 1 cap Memantine (Namenda) 5 mg PO HS [facility] Last Admin: 03/21/17 22:02 Dose: 5 mg Multivitamins/Minerals (Therapeutic-M Tab) 1 tab PO DAILY [facility] Last Admin: 03/22/17 08:22 Dose: 1 tab Sodium Phosphate (Fleet Enema) 135 ml [place] ONCE PRN PRN Reason: Constipation Last Admin: 03/17/17 22:36 Dose: 135 ml Valsartan (Diovan) 80 mg PO DAILY [facility] Last Admin: 03/22/17 08:22 Dose: 80 mg - Labs Labs: 03/16/17 05:20 03/18/17 05:50 PT 13.7 Seconds (9.8-13.1) H 03/16/17 05:20 INR 1.2 (0.9-1.2) 03/16/17 05:20 APTT 29.8 Seconds (25.6-37.1) 03/16/17 05:20 - Constitutional Appears: No Acute Distress - Head Exam Head Exam: ATRAUMATIC, NORMAL INSPECTION - Eye Exam Eye Exam: Normal appearance - ENT Exam ENT Exam: Mucous Membranes Moist - Neck Exam Neck Exam: Normal Inspection - Respiratory Exam Respiratory Exam: Clear to Ausculation Bilateral - Cardiovascular Exam Cardiovascular Exam: REGULAR RHYTHM, +S1, +S2 - GI/Abdominal Exam GI & Abdominal Exam: Soft, Normal Bowel Sounds - Extremities Exam Extremities Exam: Normal Inspection - Neurological Exam Neurological Exam: Alert, Awake, Oriented x3 - Psychiatric Exam Psychiatric exam: Normal Affect Assessment and Plan (1) Ataxia Status: Acute (2) Cellulitis Status: Acute (3) Gait abnormality Status: Acute (4) Multiple trauma Status: Acute (5) Staph aureus infection Status: Acute (6) Dementia Status: Chronic (7) Hypertensive cardiovascular disease Status: Chronic (8) DVT (deep venous thrombosis) Status: Suspected (9) Pre-syncope Status: Suspected (10) BPH (benign prostatic hyperplasia) Status: Chronic (11) PSA elevation Status: Acute (12) Cervicalgia Status: Acute
[2017-03-22 23:24] LABS: INTESTINAL ISOENZYME 0 % (1-24); MACROHEPATIC ISOENZYME 0 % (<=0); PLACENTAL ISOENZYME 0 % (<=0)
[2017-03-22 23:38] LABS: IGM,SERUM 67 mg/dL (48-271)
[2017-03-23 00:41] LABS: IGG,SERUM 1074 mg/dL (694-1618)
[2017-03-23] MEDS: Multivitamin With Minerals Tab PO SCH (08:08)
[2017-03-23] MEDS: Lactobacillus Acidophilus 500 MU Cap PO SCH ×2 (08:08→17:12)
--- NOTE | 2017-03-23 19:40 | CP.PCM.PN ---
Subjective - Date & Time of Evaluation Date of Evaluation: 03/23/17 Time of Evaluation: 19:40 - Subjective Subjective: No new c/o Objective - Vital Signs/Intake and Output Vital Signs (last 24 hours): Temp Pulse Resp BP Pulse Ox 97.3 F L 83 20 138/75 95 03/23/17 19:29 03/23/17 19:29 03/23/17 19:29 03/23/17 19:29 03/23/17 19:29 - Medications Medications: Current Medications Acetaminophen (Tylenol 325mg Tab) 650 mg PO Q6 PRN PRN Reason: Pain, Mild (1-3) Last Admin: 03/21/17 02:42 Dose: 650 mg Atorvastatin Calcium (Lipitor) 10 mg PO DAILY [facility] Last Admin: 03/23/17 08:09 Dose: 10 mg Docusate Sodium (Colace) 100 mg PO BID [facility] Last Admin: 03/23/17 17:10 Dose: 100 mg Hydrochlorothiazide (Microzide) 12.5 mg PO DAILY [facility] Last Admin: 03/23/17 08:08 Dose: 12.5 mg Lactobacillus Acidophilus (Bacid Acidophilus) 1 cap PO BID [facility] Last Admin: 03/23/17 17:12 Dose: 1 cap Memantine (Namenda) 5 mg PO HS [facility] Last Admin: 03/22/17 22:01 Dose: 5 mg Multivitamins/Minerals (Therapeutic-M Tab) 1 tab PO DAILY [facility] Last Admin: 03/23/17 08:08 Dose: 1 tab Sodium Phosphate (Fleet Enema) 135 ml [place] ONCE PRN PRN Reason: Constipation Last Admin: 03/17/17 22:36 Dose: 135 ml Valsartan (Diovan) 80 mg PO DAILY [facility] Last Admin: 03/23/17 08:09 Dose: 80 mg - Labs Labs: 03/16/17 05:20 03/18/17 05:50 PT 13.7 Seconds (9.8-13.1) H 03/16/17 05:20 INR 1.2 (0.9-1.2) 03/16/17 05:20 APTT 29.8 Seconds (25.6-37.1) 03/16/17 05:20 - Constitutional Appears: No Acute Distress - Head Exam Head Exam: ATRAUMATIC, NORMAL INSPECTION, NORMOCEPHALIC - Eye Exam Eye Exam: Normal appearance - ENT Exam ENT Exam: Mucous Membranes Moist - Neck Exam Neck Exam: Normal Inspection - Respiratory Exam Respiratory Exam: Clear to Ausculation Bilateral - Cardiovascular Exam Cardiovascular Exam: REGULAR RHYTHM, +S1, +S2 - GI/Abdominal Exam GI & Abdominal Exam: Soft, Normal Bowel Sounds - Neurological Exam Neurological Exam: Alert, Awake, CN II-XII Intact Assessment and Plan (1) Ataxia Status: Acute (2) Cellulitis Status: Acute (3) Gait abnormality Status: Acute (4) Multiple trauma Status: Acute (5) Staph aureus infection Status: Acute (6) Dementia Status: Chronic (7) Hypertensive cardiovascular disease Status: Chronic (8) DVT (deep venous thrombosis) Status: Suspected (9) Pre-syncope Status: Suspected (10) BPH (benign prostatic hyperplasia) Status: Chronic (11) PSA elevation Status: Acute (12) Cervicalgia Status: Acute - Assessment and Plan (Free Text) Plan: Continue present rx
[2017-03-24] MEDS: Multivitamin With Minerals Tab PO SCH (09:10)
[2017-03-24] MEDS: Lactobacillus Acidophilus 500 MU Cap PO SCH ×2 (09:10→16:35)
[2017-03-24 22:01] LABS: KAPPA/LAMBDA FREE RATIO 23.05 (0.26-1.65)
[2017-03-25 07:58] VITALS: BP 134/62; PULSE 68; TEMP 97.3; O2SAT 95
[2017-03-25] MEDS: Multivitamin With Minerals Tab PO SCH (08:38)
[2017-03-25] MEDS: Lactobacillus Acidophilus 500 MU Cap PO SCH (08:39)
--- NOTE | 2017-03-25 11:54 | CP.PCM.PN ---
Subjective - Date & Time of Evaluation Date of Evaluation: 03/24/17 Time of Evaluation: 17:00 - Subjective Subjective: Comfortable Objective - Vital Signs/Intake and Output Vital Signs (last 24 hours): Temp Pulse Resp BP Pulse Ox 97.3 F L 68 20 134/62 95 03/25/17 07:57 03/25/17 07:57 03/25/17 07:57 03/25/17 07:57 03/25/17 07:57 - Medications Medications: Current Medications Acetaminophen (Tylenol 325mg Tab) 650 mg PO Q6 PRN PRN Reason: Pain, Mild (1-3) Last Admin: 03/21/17 02:42 Dose: 650 mg Atorvastatin Calcium (Lipitor) 10 mg PO DAILY [facility] Last Admin: 03/25/17 08:38 Dose: 10 mg Docusate Sodium (Colace) 100 mg PO BID [facility] Last Admin: 03/25/17 08:38 Dose: 100 mg Hydrochlorothiazide (Microzide) 12.5 mg PO DAILY [facility] Last Admin: 03/25/17 08:38 Dose: 12.5 mg Lactobacillus Acidophilus (Bacid Acidophilus) 1 cap PO BID [facility] Last Admin: 03/25/17 08:39 Dose: 1 cap Memantine (Namenda) 5 mg PO HS [facility] Last Admin: 03/24/17 21:00 Dose: 5 mg Multivitamins/Minerals (Therapeutic-M Tab) 1 tab PO DAILY [facility] Last Admin: 03/25/17 08:38 Dose: 1 tab Sodium Phosphate (Fleet Enema) 135 ml [place] ONCE PRN PRN Reason: Constipation Last Admin: 03/17/17 22:36 Dose: 135 ml Valsartan (Diovan) 80 mg PO DAILY [facility] Last Admin: 03/25/17 08:38 Dose: 80 mg - Labs Labs: 03/16/17 05:20 03/18/17 05:50 PT 13.7 Seconds (9.8-13.1) H 03/16/17 05:20 INR 1.2 (0.9-1.2) 03/16/17 05:20 APTT 29.8 Seconds (25.6-37.1) 03/16/17 05:20 - Constitutional Appears: No Acute Distress - Head Exam Head Exam: ATRAUMATIC, NORMAL INSPECTION, NORMOCEPHALIC - Eye Exam Eye Exam: EOMI, Normal appearance, PERRL - ENT Exam ENT Exam: Mucous Membranes Moist - Neck Exam Neck Exam: Full ROM - Respiratory Exam Respiratory Exam: Clear to Ausculation Bilateral - Cardiovascular Exam Cardiovascular Exam: REGULAR RHYTHM, +S1, +S2 - GI/Abdominal Exam GI & Abdominal Exam: Soft, Normal Bowel Sounds - Neurological Exam Neurological Exam: Alert, Awake, CN II-XII Intact Assessment and Plan (1) Ataxia Status: Acute (2) Cellulitis Status: Acute (3) Gait abnormality Status: Acute (4) Multiple trauma Status: Acute (5) Staph aureus infection Status: Acute (6) Dementia Status: Chronic (7) Hypertensive cardiovascular disease Status: Chronic (8) DVT (deep venous thrombosis) Status: Suspected (9) Pre-syncope Status: Suspected (10) BPH (benign prostatic hyperplasia) Status: Chronic (11) PSA elevation Status: Acute (12) Cervicalgia Status: Acute - Assessment and Plan (Free Text) Plan: Continue present rx.
--- NOTE | 2017-03-25 12:46 | CP.PCM.DIS ---
Provider - Provider Date of Admission: 03/15/17 15:30 Attending physician: Luis Antonio MD Primary care physician: Luis Antonio MD Time Spent in preparation of Discharge (in minutes): 30 Diagnosis - Discharge Diagnosis (1) Ataxia Status: Acute (2) Cellulitis Status: Acute (3) Gait abnormality Status: Acute (4) Multiple trauma Status: Acute (5) Staph aureus infection Status: Acute (6) Dementia Status: Chronic (7) Hypertensive cardiovascular disease Status: Chronic (8) DVT (deep venous thrombosis) Status: Suspected (9) Pre-syncope Status: Suspected (10) BPH (benign prostatic hyperplasia) Status: Chronic (11) PSA elevation Status: Acute (12) Cervicalgia Status: Acute Hospital Course - Lab Results Lab Results: Most Recent Lab Values WBC 6.9 K/uL (4.8-10.8) 03/16/17 05:20 RBC 3.57 Mil/uL (4.40-5.90) L 03/16/17 05:20 Hgb 11.7 g/dL (12.0-18.0) L 03/16/17 05:20 Hct 33.4 % (35.0-51.0) L 03/16/17 05:20 MCV 93.5 fl (80.0-94.0) 03/16/17 05:20 MCH 32.6 pg (27.0-31.0) H 03/16/17 05:20 MCHC 34.9 g/dL (33.0-37.0) 03/16/17 05:20 RDW 12.6 % (11.5-14.5) 03/16/17 05:20 Plt Count 136 K/uL (130-400) 03/16/17 05:20 PT 13.7 Seconds (9.8-13.1) H 03/16/17 05:20 INR 1.2 (0.9-1.2) 03/16/17 05:20 APTT 29.8 Seconds (25.6-37.1) 03/16/17 05:20 Sodium 139 mmol/l (132-148) 03/18/17 05:50 Potassium 3.8 MMOL/L (3.6-5.0) 03/18/17 05:50 Chloride 96 mmol/L (98-107) L 03/18/17 05:50 Carbon Dioxide 32 mmol/L (22-30) H 03/18/17 05:50 Anion Gap 15 (10-20) 03/18/17 05:50 BUN 25 mg/dl (9-20) H 03/18/17 05:50 Creatinine 0.8 mg/dL (0.8-1.5) 03/18/17 05:50 Est GFR ( Amer) > 60 03/18/17 05:50 Est GFR (Non-Af Amer) > 60 03/18/17 05:50 Random Glucose 124 mg/dL (75-110) H 03/18/17 05:50 Calcium 9.6 mg/dL (8.4-10.2) 03/18/17 05:50 Alkaline Phosphatase 56 U/L (40-115) 03/18/17 05:50 Alk Phos Iso-Intestine 0 % (1-24) L 03/18/17 05:50 Alk Phos Iso-Bone 18 % (28-66) L 03/18/17 05:50 Alk Phos Iso-Liver 82 % (25-69) H 03/18/17 05:50 Alk Phos Iso-Placenta 0 % (<=0) 03/18/17 05:50 Alk Phos Iso-Renal 0 % (<=0) 03/18/17 05:50 Total Protein (PEP) 7.1 g/dL (6.1-8.1) 03/17/17 16:02 Albumin (PEP) 3.3 g/dL (3.8-4.8) L 03/17/17 16:02 Zocdy-7-Efgkbattx 0.6 g/dL (0.2-0.3) H 03/17/17 16:02 Gworw-4-Gxcmkjkhz 1.2 g/dL (0.5-0.9) H 03/17/17 16:02 Qodh-7-Vqniwtbm 0.4 g/dL (0.4-0.6) 03/17/17 16:02 Elve-8-Uiqwwikj 0.5 g/dL (0.2-0.5) 03/17/17 16:02 Gamma Globulins 1.0 g/dL (0.8-1.7) 03/17/17 16:02 Abnorm Protein Band 1 TEST NOT PERFORMED 03/17/17 16:02 Abnorm Protein Band 2 TEST NOT PERFORMED 03/17/17 16:02 Abnorm Protein Band 3 TEST NOT PERFORMED 03/17/17 16:02 Prostate Specific Ag 8.47 ng/ML (0.00-4.0) H 03/17/17 16:02 Urine Color Yellow (YELLOW) 03/17/17 16:59 Urine Clarity Cloudy (Clear) 03/17/17 16:59 Urine pH 5.0 (5.0-8.0) 03/17/17 16:59 Ur Specific [place] 1.027 (1.003-1.030) 03/17/17 16:59 Urine Protein 100 mg/dL (NEGATIVE) 03/17/17 16:59 Urine Glucose (UA) Neg mg/dL (Normal) 03/17/17 16:59 Urine Ketones Negative mg/dL (NEGATIVE) 03/17/17 16:59 Urine Blood Small (NEGATIVE) 03/17/17 16:59 Urine Nitrate Negative (NEGATIVE) 03/17/17 16:59 Urine Bilirubin Negative (NEGATIVE) 03/17/17 16:59 Urine Urobilinogen 0.2-1.0 mg/dL (0.2-1.0) 03/17/17 16:59 Ur Leukocyte Esterase Neg [place]/uL (Negative) 03/17/17 16:59 Urine RBC (Auto) 9 /hpf (0-3) H 03/17/17 16:59 Urine Microscopic WBC 3 /hpf (0-5) 03/17/17 16:59 Ur Squamous Epith Cells 1 /hpf (0-5) 03/17/17 16:59 Urine Collection Time 24 HRS 03/18/17 17:20 Urine Total Volume 875 mL 03/18/17 17:20 Ur Protein 24 Hr Calc 542.5 mg/24hr (42-225) H 03/18/17 17:20 IgG 1074 mg/dL (694-1618) 03/20/17 18:55 IgA 224 mg/dL (81-463) 03/20/17 18:55 IgM 67 mg/dL (48-271) 03/20/17 18:55 BRENDA & SPEP Interp See note 03/17/17 16:02 Serum Immunofixation Detected (Not Detected) H 03/20/17 18:55 Free [place] Light Chains 520.9 mg/L (3.3-19.4) H 03/20/17 14:55 Free [place] Light Chain 22.6 mg/L (5.7-26.3) 03/20/17 14:55 Free [place]/Lambda Ratio 23.05 (0.26-1.65) H 03/20/17 14:55 - Hospital Course Hospital Course: y/o gentleman presented in with multiple trauma secondary to fall. He well responded to PT. During his hospitalization was found to have an elevation of PSA and Light chain. Will will DC the patient home and will follow with hemo and urology . Discharge Exam - Head Exam Head Exam: ATRAUMATIC, NORMAL INSPECTION, NORMOCEPHALIC - Eye Exam Eye Exam: Normal appearance - ENT Exam ENT Exam: Mucous Membranes Moist - Respiratory Exam Respiratory Exam: Clear to PA & Lateral - Cardiovascular Exam Cardiovascular Exam: REGULAR RHYTHM, +S1, +S2 - GI/Abdominal Exam GI & Abdominal Exam: Normal Bowel Sounds - Neurological Exam Neurological exam: Alert, Oriented x3 - Psychiatric Exam Psychiatric exam: Normal Affect Discharge Plan - Follow Up Plan Condition: GOOD Disposition: HOME/ ROUTINE Referrals: Luis Antonio MD [Primary Care Provider] -
--- NOTE | 2017-03-25 13:00 | CP.PCM.PN ---
Subjective - Date & Time of Evaluation Date of Evaluation: 03/25/17 Time of Evaluation: 12:58 - Subjective Subjective: Pt's results are available. 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 If however he does not want chemo for the Myeloma, I dont see any point in doing a bone marrow. Will speak to Dr andrew de jesus same. Objective - Vital Signs/Intake and Output Vital Signs (last 24 hours): Temp Pulse Resp BP Pulse Ox 97.3 F L 68 20 134/62 95 03/25/17 07:57 03/25/17 07:57 03/25/17 07:57 03/25/17 07:57 03/25/17 07:57 - Medications Medications: Current Medications Acetaminophen (Tylenol 325mg Tab) 650 mg PO Q6 PRN PRN Reason: Pain, Mild (1-3) Last Admin: 03/21/17 02:42 Dose: 650 mg Atorvastatin Calcium (Lipitor) 10 mg PO DAILY [facility] Last Admin: 03/25/17 08:38 Dose: 10 mg Docusate Sodium (Colace) 100 mg PO BID [facility] Last Admin: 03/25/17 08:38 Dose: 100 mg Hydrochlorothiazide (Microzide) 12.5 mg PO DAILY [facility] Last Admin: 03/25/17 08:38 Dose: 12.5 mg Lactobacillus Acidophilus (Bacid Acidophilus) 1 cap PO BID [facility] Last Admin: 03/25/17 08:39 Dose: 1 cap Memantine (Namenda) 5 mg PO HS [facility] Last Admin: 03/24/17 21:00 Dose: 5 mg Multivitamins/Minerals (Therapeutic-M Tab) 1 tab PO DAILY [facility] Last Admin: 03/25/17 08:38 Dose: 1 tab Sodium Phosphate (Fleet Enema) 135 ml UT ONCE PRN PRN Reason: Constipation Last Admin: 03/17/17 22:36 Dose: 135 ml Valsartan (Diovan) 80 mg PO DAILY [facility] Last Admin: 03/25/17 08:38 Dose: 80 mg - Labs Labs: 03/16/17 05:20 03/18/17 05:50 PT 13.7 Seconds (9.8-13.1) H 03/16/17 05:20 INR 1.2 (0.9-1.2) 03/16/17 05:20 APTT 29.8 Seconds (25.6-37.1) 03/16/17 05:20
== END 2017-03-25 14:17 | disposition home health service (06) | DRG 92 ==
LOC: H.TCU 15:30
PROVIDERS: ADMIT Internal Medicine; ATTEND Internal Medicine
PROC: F07Z9FZ Gait Training/Functional Ambulation Treatment using Assistive, Adaptive, Supportive or Protective Equipment (ICD-10-PCS; principal; 2017-03-15)
PROC: F08Z4FZ Home Management Treatment using Assistive, Adaptive, Supportive or Protective Equipment (ICD-10-PCS; 2017-03-15)
PROC: 3E03329 Introduction of Other Anti-infective into Peripheral Vein, Percutaneous Approach (ICD-10-PCS; 2017-03-15)
PROC: F07M6FZ Therapeutic Exercise Treatment of Musculoskeletal System - Whole Body using Assistive, Adaptive, Supportive or Protective Equipment (ICD-10-PCS; 2017-03-16)
DX: R26.89 Other abnormalities of gait and mobility (principal); L03.113 Cellulitis of right upper limb; F03.90 Unspecified dementia, unspecified severity, without behavioral disturbance, psychotic disturbance, mood disturbance, and anxiety; I11.9 Hypertensive heart disease without heart failure; D89.0 Polyclonal hypergammaglobulinemia; R54 Age-related physical debility; D64.9 Anemia, unspecified; I25.10 Atherosclerotic heart disease of native coronary artery without angina pectoris; B95.61 Methicillin susceptible Staphylococcus aureus infection as the cause of diseases classified elsewhere; M54.2 Cervicalgia; M19.90 Unspecified osteoarthritis, unspecified site; E78.00 Pure hypercholesterolemia, unspecified; N40.0 Benign prostatic hyperplasia without lower urinary tract symptoms; Z91.81 History of falling; R97.20 Elevated prostate specific antigen [PSA]; Z95.0 Presence of cardiac pacemaker

== ENCOUNTER 2017-09-02 14:17 | Observation (INO) | payer MEDICARE, BC ==
[2017-09-02 14:17] VITALS: BMI 25.4
--- NOTE | 2017-09-02 15:57 | RAD ---
PROCEDURE: Radiographs of the Right Shoulder HISTORY: fall COMPARISON: No prior right shoulder x-rays shoulder is visualized on the 03/12/2017 chest x-ray FINDINGS: BONES: No discrete cortical fracture is identified. The contour of the superolateral humeral head overlaps with Hill-Sachs lesions of prior dislocations. Top normal variant is another consideration if history does not support this. Currently no dislocation is suggested. 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 Calcific changes in the capsule here and/or large loose body in the acromioclavicular joint are some considerations. This is present on the 03/12/2017 chest x-ray OTHER FINDINGS: The humeral head is high riding compatible with rotator cuff pathology IMPRESSION: No cortical fracture appreciated. No dislocation noted. Arthro pathic hypertrophic changes as above. Probable calcific and/or ossific juxta-articular changes superior to the acromioclavicular joint Inflammatory basis is favored.
--- NOTE | 2017-09-02 16:04 | ED PDOC ---
HPI: Trauma/Fall - HPI Time Seen by Provider: 09/02/17 14:20 Chief Complaint (Nursing): Trauma Chief Complaint (Provider): Fall History Per: Patient History/Exam Limitations: no limitations Onset/Duration Of Symptoms: Days (x2) Injury Occurred (Timing): Days Ago: (x2) Location Of Injury: Right: Shoulder, Left: Shoulder Associated Symptoms: denies: LOC Additional Complaint(s): Farshad Giordano is an 86 year old male, with a past history of gait instability, bph, dementia who presents to the emergency department complaining of b/l shoulder pain s/p fall x2 days ago. Patient reports while taking a walk outside he fell on uneven ground and landed on concrete. Patient states pain is worst when lifting both arms. He did not go to the ED at the time and denies LOC , chest pain or shortness of breath. No further medical complaints. PMD: Luis Antonio Past Medical History Reviewed: Historical Data, Nursing Documentation, Vital Signs Vital Signs: Last Vital Signs Temp 98.3 F 09/04/17 08:28 Pulse 83 09/04/17 08:28 Resp 20 09/04/17 08:28 BP 146/65 09/04/17 08:28 Pulse Ox 99 09/04/17 08:28 - Medical History PMH: CAD, Dementia, HTN, Hypercholesterolemia Denies: HIV, Chronic Kidney Disease - Surgical History Surgical History: Pacemaker - Family History Family History: States: Unknown Family Hx - Social History Ex-Smoker (has not smoked in the last 12 months): Yes Alcohol: None Drugs: Denies - Home Medications Home Medications: Ambulatory Orders Medication Instructions Recorded Atorvastatin [Lipitor] 10 mg PO DAILY 09/02/17 Melatonin/Pyridoxine HCl (B6) 10 mg PO HS 09/02/17 [Melatonin 10 mg Tablet] Memantine [Namenda] 5 mg PO DAILY 09/02/17 Oxybutynin [Ditropan Tab] 5 mg PO DAILY 09/02/17 Valsartan [Diovan] 160 mg PO DAILY 09/02/17 l-Mefol/A-Cyst/Meb12/Algal Oil 1 cap PO DAILY 09/02/17 [Cerefolin Nac Caplet] - Allergies Allergies/Adverse Reactions: Allergies Allergy/AdvReac Type Severity Reaction Status Date / Time No Known Allergies Allergy Verified 09/02/17 14:21 Review of Systems ROS Statement: Except As Marked, All Systems Reviewed And Found Negative Cardiovascular: Negative for: Chest Pain Respiratory: Negative for: Shortness of Breath Musculoskeletal: Positive for: Shoulder Pain (b/l ) Neurological: Negative for: Other (LOC) Physical Exam - Reviewed Nursing Documentation Reviewed: Yes Vital Signs Reviewed: Yes - Physical Exam Appears: Positive for: Non-toxic, No Acute Distress Head Exam: Positive for: ATRAUMATIC, NORMOCEPHALIC Skin: Positive for: Normal Color, Warm, Dry Eye Exam: Positive for: Normal appearance, EOMI, PERRL ENT: Positive for: Other (some abrasion in nasal bridge and hematoma in chin) Neck: Positive for: Painless ROM, Supple Cardiovascular/Chest: Positive for: Regular Rate, Rhythm. Negative for: Murmur Respiratory: Positive for: Normal Breath Sounds. Negative for: Respiratory Distress Gastrointestinal/Abdominal: Positive for: Normal Exam, Soft. Negative for: Tenderness Back: Positive for: Normal Inspection. Negative for: L CVA Tenderness, R CVA Tenderness, Vertebral Tenderness Extremity: Positive for: Normal ROM (upper and lower extremities), Other ( Abrasions on hands and palms. No active bleed or open wounds.). Negative for: Tenderness, Deformity, Swelling Neurologic/Psych: Positive for: Alert, Oriented (x3), Other (slight tremor at rest). Negative for: Motor/Sensory Deficits - Laboratory Results Result Diagrams: 09/03/17 05:55 09/03/17 05:55 - ECG O2 Sat by Pulse Oximetry: 96 (RA) Pulse Ox Interpretation: Normal Medical Decision Making Medical Decision Making: Initial Impression: Fall injury Initial Plan: --Head w/o contrast [CT] --Maxillofacial w/o contrast [CT] --CMP --CBC w/ differential --Hip Bi with Pelvis Fall Protocol [HIP MIN 2V W. PELVIS AMELIA] [RAD] --Shoulder left [RAD] --Shoulder right [RAD] --Reevaluation 15:55 right Shoulder xray FINDINGS: BONES: No discrete cortical fracture is identified. The contour of the superolateral humeral head overlaps with Hill-Sachs lesions of prior dislocations. Top normal variant is another consideration if history does not support this. Currently no dislocation is suggested. 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 Calcific changes in the capsule here and/or large loose body in the acromioclavicular joint are some considerations. This is present on the 03/12/2017 chest x-ray OTHER FINDINGS: The humeral head is high riding compatible with rotator cuff pathology IMPRESSION: No cortical fracture appreciated. No dislocation noted. Arthro pathic hypertrophic changes as above. Probable calcific and/or ossific juxta-articular changes superior to the acromioclavicular joint Inflammatory basis is favored. 16:04 left Shoulder xray FINDINGS: BONES: No acute fracture or dislocation appreciated. The humeral head is high-riding compatible with rotator cuff pathology. As noted in the right shoulder - the contour changes of the superolateral left humeral head a can overlap with a Hill -Sachs deformity in a finding of prior shoulder dislocations. Currently the shoulder is not dislocated. Correlation with history is needed. Top normal variant can also simulate this if dislocation history is not elicited. JOINTS: Hypertrophic glenohumeral and acromioclavicular joint arthrosis. A amorphous faint calcifications/ossifications superior left acromioclavicular joint- chronic inflammatory basis is favored. SOFT TISSUES: As above OTHER FINDINGS: Duallead pacemaker device partially visualize. Atherosclerotic vascular calcifications present. . IMPRESSION: No fracture or dislocation. Left shoulder arthrosis as above. 16:23 Hip X-Ray FINDINGS: No interval fracture or dislocation suggested. Bilateral hip arthrosis. Right hip greater than left. The right femoral head neck superior cortical contour can be seen with a femoral acetabular impingement syndrome. This morphology is unchanged. Inferior lumbar spondylosis Atherosclerotic vascular calcifications present. . Stool retention. IMPRESSION: Bilateral hip arthrosis. Inferior lumbar spondylosis. Right femoral morphology stable - can be seen with a clinical femoral acetabular impingement syndrome. No fracture appreciated. Clinical follow-up recommended Stool retention. Atherosclerotic vascular calcifications present. . 16:[address] FINDINGS: HEMORRHAGE: No intracranial hemorrhage. BRAIN: Good corticomedullary differentiation is seen. Reiterated diffuse cerebral atrophy and chronic microangiopathy. No suspicious extra-axial fluid collection is identified and the midline brain anatomy appears grossly nonfocal as imaged. There is no mass effect with midline brain anatomy stable in appearance. No suspicious extra-axial collection is appreciated throughout. VENTRICLES: Unremarkable. No hydrocephalus. CALVARIUM: No destructive bony lesion or displaced fracture identified including through the skullbase. PARANASAL SINUSES: Unremarkable as visualized. No significant inflammatory changes. MASTOID AIR CELLS: Unremarkable as visualized. No inflammatory changes. OTHER FINDINGS: None. IMPRESSION: Age related neuro degenerative changes are reiterated without acute intracranial findings as discussed above. No fracture identified throughout. Follow up CT or MRI are available if clinically warranted. 17:00 -According to daughter patient has been falling frequently at home and unable to care for himself at home. Potentially needs placement in a facility. -Spoke with Hospitalist, Dr. Ruiz who is currently with patient. 17:[address] FINDINGS: There is no fracture or destructive bony lesion identified throughout the visualized bilateral frontal, temporal and parietal bones with the sphenoid bone intact as well as the mandible and maxilla. The paranasal sinuses appear well developed and aerated with no suspicious opacification associated. There is rightward bony nasal septal deviation without fracture. The bony orbits are intact. Bilateral soft tissues appear grossly nonfocal throughout. The patient is nearly edentulous with dentures in situ. MANDIBLE/ TEMPOROMANDIBULAR JOINTS: Unremarkable. SKULL BASE: Unremarkable. OTHER FINDINGS: None. IMPRESSION: No fracture of the facial bones including the mandible and maxilla. per pt daughter pt been falling more than usual. will admit for possible placement in a facility. ~ Scribe Attestation: Documented by Artemio Cagle, acting as a scribe for Naa Samaniego MD. Provider Scribe Attestation: All medical record entries made by the Scribe were at my direction and personally dictated by me. I have reviewed the chart and agree that the record accurately reflects my personal performance of the history, physical exam, medical decision making, and the department course for this patient. I have also personally directed, reviewed, and agree with the discharge instructions and disposition. Disposition - Clinical Impression Clinical Impression: Fall - Patient ED Disposition Is Patient to be Admitted: Yes Counseled Patient/Family Regarding: Studies Performed, Diagnosis - Disposition Disposition Time: 17:00 Condition: STABLE
--- NOTE | 2017-09-02 16:06 | RAD ---
PROCEDURE: Radiographs of the Left Shoulder HISTORY: fall COMPARISON: No prior. The after mentioned prior 03/12/2017 chest x-ray does not included the left shoulder nor does the PA chest 12/13/2013 included either. Correlation is made with the radiographic findings in the right shoulder FINDINGS: BONES: No acute fracture or dislocation appreciated. The humeral head is high-riding compatible with rotator cuff pathology. As noted in the right shoulder - the contour changes of the superolateral left humeral head a can overlap with a Hill-Sachs deformity in a finding of prior shoulder dislocations. Currently the shoulder is not dislocated. Correlation with history is needed. Top normal variant can also simulate this if dislocation history is not elicited. JOINTS: Hypertrophic glenohumeral and acromioclavicular joint arthrosis. A amorphous faint calcifications/ossifications superior left acromioclavicular joint- chronic inflammatory basis is favored. SOFT TISSUES: As above OTHER FINDINGS: Duallead pacemaker device partially visualize. Atherosclerotic vascular calcifications present. . IMPRESSION: No fracture or dislocation. Left shoulder arthrosis as above
--- NOTE | 2017-09-02 16:25 | RAD ---
PROCEDURE: HISTORY: fall on thursday COMPARISON: 03/12/2017 TECHNIQUE: AP view of the pelvis and applicable frog leg views obtained. FINDINGS: No interval fracture or dislocation suggested. Bilateral hip arthrosis. Right hip greater than left. The right femoral head neck superior cortical contour can be seen with a femoral acetabular impingement syndrome. This morphology is unchanged. Inferior lumbar spondylosis Atherosclerotic vascular calcifications present. . Stool retention. IMPRESSION: Bilateral hip arthrosis. Inferior lumbar spondylosis. Right femoral morphology stable - can be seen with a clinical femoral acetabular impingement syndrome. No fracture appreciated. Clinical follow-up recommended Stool retention. Atherosclerotic vascular calcifications present. .
[2017-09-02 16:34] LABS: ALB/GLOB RATIO 1.2 (1.0-2.1); ALBUMIN 3.6 g/dL (3.5-5.0); ALT/SGPT 26 U/L (21-72); AST/SGOT 20 U/L (17-59); BLOOD UREA NITROGEN 30 mg/dl (9-20); CALCIUM 9.8 mg/dL (8.4-10.2); GFR AFRICAN-AMERICAN > 60; GFR NON-AFRICAN AMERICAN > 60
[2017-09-02 16:38] LABS: BASO % 0.2 % (0.0-2.0); EOS % 0.1 % (0.0-4.0); HEMOGLOBIN 11.2 g/dL (12.0-18.0); LYMPH # 1.3 K/uL (1.0-4.3); LYMPH % 15.5 % (20.0-40.0); MEAN CELL VOLUME 94.5 fl (80.0-94.0); MEAN CORPUSCULAR HEMOGLOBIN 32.1 pg (27.0-31.0); MEAN PLATELET VOLUME 9.2 fl (7.2-11.7); MONO % 24.9 % (0.0-10.0); NEUT # 4.8 K/uL (1.8-7.0); NEUT % 59.3 % (50.0-75.0); PLATELET COUNT 93 K/uL (130-400); RBC 3.48 Mil/uL (4.40-5.90); RED CELL DISTRIBUTION WIDTH 12.8 % (11.5-14.5); WHITE BLOOD COUNT 8.1 K/uL (4.8-10.8)
--- NOTE | 2017-09-02 16:58 | CT ---
PROCEDURE: CT HEAD WITHOUT CONTRAST. HISTORY: fall COMPARISON: None available. TECHNIQUE: Axial computed tomography images were obtained through the head/brain without intravenous contrast. Radiation dose: Total exam DLP = 839.54 mGy-cm. This CT exam was performed using one or more of the following dose reduction techniques: Automated exposure control, adjustment of the mA and/or kV according to patient size, and/or use of iterative reconstruction technique. FINDINGS: HEMORRHAGE: No intracranial hemorrhage. BRAIN: Good corticomedullary differentiation is seen. Reiterated diffuse cerebral atrophy and chronic microangiopathy. No suspicious extra-axial fluid collection is identified and the midline brain anatomy appears grossly nonfocal as imaged. There is no mass effect with midline brain anatomy stable in appearance. No suspicious extra-axial collection is appreciated throughout. VENTRICLES: Unremarkable. No hydrocephalus. CALVARIUM: No destructive bony lesion or displaced fracture identified including through the skullbase. PARANASAL SINUSES: Unremarkable as visualized. No significant inflammatory changes. MASTOID AIR CELLS: Unremarkable as visualized. No inflammatory changes. OTHER FINDINGS: None. IMPRESSION: Age related neuro degenerative changes are reiterated without acute intracranial findings as discussed above. No fracture identified throughout. Follow up CT or MRI are available if clinically warranted.
--- NOTE | 2017-09-02 17:02 | CT ---
PROCEDURE: CT MAXILLOFACIAL BONES WITHOUT CONTRAST HISTORY: fall chin hematoma COMPARISON: None TECHNIQUE: Contiguous axial CT images of the maxillofacial bones were obtained. Coronal and sagittal reformats were generated. Radiation dose: Total exam DLP = mGy-cm. This CT exam was performed using one or more of the following dose reduction techniques: Automated exposure control, adjustment of the mA and/or kV according to patient size, and/or use of iterative reconstruction technique. FINDINGS: There is no fracture or destructive bony lesion identified throughout the visualized bilateral frontal, temporal and parietal bones with the sphenoid bone intact as well as the mandible and maxilla. The paranasal sinuses appear well developed and aerated with no suspicious opacification associated. There is rightward bony nasal septal deviation without fracture. The bony orbits are intact. Bilateral soft tissues appear grossly nonfocal throughout. The patient is nearly edentulous with dentures in situ. MANDIBLE/ TEMPOROMANDIBULAR JOINTS: Unremarkable. SKULL BASE: Unremarkable. OTHER FINDINGS: None. IMPRESSION: No fracture of the facial bones including the mandible and maxilla.
--- NOTE | 2017-09-02 17:53 | RAD ---
HISTORY: Falls COMPARISON: 03/12/2017. FINDINGS: LUNGS: The lungs are well inflated. No focal consolidation. There is left basilar atelectasis. PLEURA: No significant pleural effusion identified, no pneumothorax apparent. CARDIOVASCULAR: The heart is normal in size. Atherosclerotic aortic arch calcifications are present. There is stable position of a left-sided dual lead transvenous permanent pacing device OSSEOUS STRUCTURES: Within normal limits for the patient's age. VISUALIZED UPPER ABDOMEN: Normal. OTHER FINDINGS: None. IMPRESSION: No active pulmonary disease.
[2017-09-02 17:57] LABS: URINE BILIRUBIN NEGATIVE (NEGATIVE); URINE BLOOD SMALL (NEGATIVE); URINE CLARITY SLIGHTY-CLOUDY (Clear); URINE COLOR YELLOW (YELLOW); URINE GLUCOSE (UA) NEG (Normal); URINE LEUKOCYTE ESTERASE NEG Leu/uL (Negative); URINE PROTEIN 100 mg/dL (NEGATIVE); URINE UROBILINOGEN 0.2-1.0 mg/dL (0.2-1.0)
--- NOTE | 2017-09-02 18:07 | CP.PCM.HP ---
History of Present Illness - History of Present Illness History of Present Illness: 86 year old male with a past medical history of osteoarthritis, BPH, CAD, essential hypertension, hypercholesterolemia, dementia, hx DVT, who came to the ED accompanied by family status post fall. The daughter who is present at bedside relates that the patient was walking outside Thursday and had a mechanical fall. Initially 911 was called and the patient was being brought to the ED, however he refused all care at that time. Over the weekend the family noticed that he has been having progressively worsening dystaxic gait and generalized weakness to the point where he has been having problems walking and has not been able to even dress himself. The patient has multiple complaints of pain, mostly the right shoulder where he fell along with. hip pain. A full imaging workup was cone including maxillofacial and head CT, bilateral shoulder X rays, Hip/pelvis X ray, CXR, all showing no acute fracture. However there is evidence of arthropathy on bilateral shoulder X rays, especially concerning the right AC joint. Due to gait instability and unsafe discharge, the patient is to be placed on observation for physical therapy and further workup. The patient denies any chest pain, sob, lethargy, n/v/d/f/c. Present on Admission - Present on Admission Any Indicators Present on Admission: No History of DVT/PE: Yes History of Uncontrolled Diabetes: No Review of Systems - Review of Systems Review of Systems: A 12 point review of systems was conducted and found to be negative other than what was mentioned in the HPI. Past Patient History - Infectious Disease Hx of Infectious Diseases: None - Past Medical History & Family History Past Medical History?: Yes - Past Social History Alcohol: None Drugs: Denies - CARDIAC Hx Hypercholesterolemia: Yes Hx Hypertension: Yes Hx Pacemaker: Yes - PULMONARY Hx Respiratory Disorders: No - NEUROLOGICAL Hx Dementia: Yes - HEENT Hx HEENT Problems: No - RENAL Hx Chronic Kidney Disease: No - ENDOCRINE/METABOLIC Hx Endocrine Disorders: No - HEMATOLOGICAL/ONCOLOGICAL Hx Human Immunodeficiency Virus (HIV): No - INTEGUMENTARY Hx Dermatological Problems: No - MUSCULOSKELETAL/RHEUMATOLOGICAL Hx Falls: Yes - GASTROINTESTINAL Hx Gastrointestinal Disorders: No - GENITOURINARY/GYNECOLOGICAL Hx Prostate Problems: Yes (bph) - PSYCHIATRIC Hx Psychophysiologic Disorder: No Hx Substance Use: No - SURGICAL HISTORY Other/Comment: pacemaker - ANESTHESIA Hx Anesthesia: Yes Hx Anesthesia Reactions: No Hx Malignant Hyperthermia: No Meds Allergies/Adverse Reactions: Allergies Allergy/AdvReac Type Severity Reaction Status Date / Time No Known Allergies Allergy Verified 09/02/17 14:21 Physical Exam - Additional Findings Additional findings: Physical exam: Constitutional- cooperative, awake, alert Head- NCAT, PERRL Eye- PERRL, EOMI ENT- normal exam, MMM. Neck- normal inspection, supple, no JVD Respiratory- CTAB, no wheezes rales rhonchi Cardiovascular- RRR, +S1, +S2 no MRG GI/Abdominal- normal bowel sounds, soft, no mass, no hsm Skin- warm, dry Extremities Exam- 5/5 UE BL mm strength but only able to get to 70 degrees of right abduction due to pain. Able to get to 90 degrees on the left in abduction of the left arm but stopped due to pain. Lower extremities have 4/5 muscle strength. + Ataxic gait. normal capillary refill, normal inspection Neurological Exam- alert, awake, oriented. CN II-XII intact. Psych- normal mood, normal affect Results - Vital Signs Recent Vital Signs: Last Vital Signs Temp 99.1 F 09/02/17 14:21 Pulse 91 H 09/02/17 14:21 Resp 16 09/02/17 14:21 BP 128/66 09/02/17 14:21 Pulse Ox 96 09/02/17 17:52 - Labs Result Diagrams: 09/02/17 16:08 09/02/17 16:08 Labs: Laboratory Results - last 24 hr 09/02/17 09/02/17 09/02/17 16:08 16:08 17:38 WBC 8.1 D RBC 3.48 L Hgb 11.2 L Hct 32.8 L MCV 94.5 H MCH 32.1 H MCHC 34.0 RDW 12.8 Plt Count 93 L MPV 9.2 Neut % (Auto) 59.3 Lymph % (Auto) 15.5 L [place] % (Auto) 24.9 H Eos % (Auto) 0.1 Baso % (Auto) 0.2 Neut # (Auto) 4.8 Lymph # (Auto) 1.3 [place] # (Auto) 2.0 H Eos # (Auto) 0.0 Baso # (Auto) 0.0 Sodium 141 Potassium 4.0 Chloride 102 Carbon Dioxide 27 Anion Gap 16 BUN 30 H Creatinine 0.9 Est GFR ( Amer) > 60 Est GFR (Non-Af Amer) > 60 Random Glucose 148 H Calcium 9.8 Total Bilirubin 1.2 AST 20 ALT 26 Alkaline Phosphatase 43 Total Protein 6.6 Albumin 3.6 Globulin 3.0 Albumin/Globulin Ratio 1.2 Urine Color Yellow Urine Clarity Slighty-cloudy Urine pH 5.0 Ur Specific Jay 1.026 Urine Protein 100 Urine Glucose (UA) Neg Urine Ketones Negative Urine Blood Small Urine Nitrate Negative Urine Bilirubin Negative Urine Urobilinogen 0.2-1.0 Ur Leukocyte Esterase Neg Urine RBC (Auto) 2 Urine Microscopic WBC 1 Assessment & Plan - Assessment and Plan (Free Text) Plan: ASSESSMENT/PLAN 86 year old male with a past medical history of osteoarthritis, BPH, CAD with hx pacemaker, essential hypertension, hypercholesterolemia, dementia, who came to the ED accompanied by family status post fall, with ataxic gait. 1) Ataxic gait and generalized weakness - Place on med/surg obs - Urinalysis to r/o any infectious process causing weakness (no leukocytosis and afebrile) - Physical therapy evaluation - Motrin PRN for arthritic pain from osteoarthritis - Fall precaution Status: Acute (2) Multiple trauma Status: Acute (3) Dementia Status: Chronic - Continue home dementia medication (4) Hypertensive cardiovascular disease Status: Chronic - Continue Diovan 160 mg po daily - Monitor (4) BPH (benign prostatic hyperplasia) Status: Chronic - Oxybutynin (5) Cervicalgia Status: Acute (6) DVT prophylaxis Heparin sq
[2017-09-02 18:37] LABS: BANDS 3 % (0-2); BLASTS 2 % (0-0); LYMPHOCYTE 14 % (20-50); MONOCYTE 16 % (0-10); NEUTROPHIL 64 % (42-75); REACTIVE LYMPHOCYTES 1 % (0-0); TOTAL CELLS COUNTED 100
[2017-09-02 18:40] LABS: ACANTHOCYTES SLIGHT; ANISOCYTOSIS SLIGHT; HYPOCHROMIC SLIGHT; OVALOCYTES SLIGHT; PLATELET ESTIMATE DECREASED (NORMAL); POIKILOCYTOSIS SLIGHT; TARGET CELLS SLIGHT
[2017-09-02] MEDS ORDERED: MELATONIN PO SCH (22:00)
[2017-09-02] MEDS ORDERED: PYRIDOXINE HCL PO SCH (22:00)
[2017-09-03 06:45] LABS: HEMOGLOBIN 10.6 g/dL (12.0-18.0); MEAN CELL VOLUME 94.7 fl (80.0-94.0); MEAN CORPUSCULAR HEMOGLOBIN 31.8 pg (27.0-31.0); MEAN CORPUSCULAR HGB CONC 33.6 g/dL (33.0-37.0); RBC 3.33 Mil/uL (4.40-5.90); RED CELL DISTRIBUTION WIDTH 13.2 % (11.5-14.5); WHITE BLOOD COUNT 6.6 K/uL (4.8-10.8)
[2017-09-03 07:02] LABS: BLOOD UREA NITROGEN 30 mg/dl (9-20); CALCIUM 9.5 mg/dL (8.4-10.2); GFR AFRICAN-AMERICAN > 60; GFR NON-AFRICAN AMERICAN > 60
[2017-09-03] MEDS ORDERED: [UNRECOGNIZED DRUG - OTHER] PO SCH (09:00)
--- NOTE | 2017-09-03 10:36 | CARD ---
APPROVED REPORT EKG Measurement Heart [id number] <Conclusion> Normal sinus rhythm Normal ECG
--- NOTE | 2017-09-03 16:47 | CP.PCM.PN ---
Subjective - Date & Time of Evaluation Date of Evaluation: 09/03/17 Time of Evaluation: 10:00 - Subjective Subjective: Patient states he feels better although still c/o bilateral shoulder pain, right worse than left. He continues to have ataxic gait although he is somewhat ambulatory with physical therapy today. No new complaints. Denies cp, sob, n/v/d /f/c. Objective - Vital Signs/Intake and Output Vital Signs (last 24 hours): Temp Pulse Resp BP Pulse Ox 99 F 90 20 111/59 L 98 09/03/17 16:09 09/03/17 16:09 09/03/17 16:09 09/03/17 16:09 09/03/17 16:09 - Medications Medications: Current Medications Atorvastatin Calcium (Lipitor) 10 mg PO DAILY [facility] Last Admin: 09/03/17 08:22 Dose: 10 mg Heparin Sodium (Porcine) (Heparin) 5,000 units SC Q12 DAVID PRN Reason: Protocol Last Admin: 09/03/17 08:22 Dose: 5,000 units Ibuprofen (Motrin Tab) 600 mg PO Q6 PRN PRN Reason: Pain, Mild (1-3) Last Admin: 09/02/17 22:48 Dose: 600 mg Memantine (Namenda) 5 mg PO DAILY [facility] Last Admin: 09/03/17 08:22 Dose: 5 mg Oxybutynin Chloride (Ditropan Tab) 5 mg PO DAILY [facility] Last Admin: 09/03/17 08:22 Dose: 5 mg Valsartan (Diovan) 160 mg PO DAILY [facility] Last Admin: 09/03/17 08:22 Dose: 160 mg - Labs Labs: 09/03/17 05:55 09/03/17 05:55 - Additional Findings Additional findings: Physical exam: Constitutional- cooperative, awake, alert Head- NCAT, PERRL Eye- PERRL, EOMI ENT- normal exam, MMM. Neck- normal inspection, supple, no JVD Respiratory- CTAB, no wheezes rales rhonchi Cardiovascular- RRR, +S1, +S2 no MRG GI/Abdominal- normal bowel sounds, soft, no mass, no hsm Skin- warm, dry Extremities Exam- 5/5 UE BL mm strength but only able to get to 70 degrees of right abduction due to pain. Able to get to 90 degrees on the left in abduction of the left arm but stopped due to pain. Lower extremities have 4/5 muscle strength. + Ataxic gait. normal capillary refill, normal inspection Neurological Exam- alert, awake, oriented. CN II-XII intact. Psych- normal mood, normal affect Assessment and Plan - Assessment and Plan (Free Text) Plan: ASSESSMENT/PLAN 86 year old male with a past medical history of osteoarthritis, BPH, CAD with hx pacemaker, essential hypertension, hypercholesterolemia, dementia, who came to the ED accompanied by family status post fall, with ataxic gait. 1) Ataxic gait and generalized weakness - Med/surg admission - no evidence of UTI or acute infectious process - Physical therapy evaluation- recommending transitional care unit upon discharge due to unsteady gait with 2 recent falls in the past. Unsafe for discharge home. - Motrin PRN for arthritic pain from osteoarthritis - Fall precaution Status: Acute (2) Multiple trauma Status: Acute (3) Dementia Status: Chronic - Continue home dementia medication (4) Hypertensive cardiovascular disease Status: Chronic - Continue Diovan 160 mg po daily - Monitor, overall appears to be controlled (4) BPH (benign prostatic hyperplasia) Status: Chronic - Oxybutynin (5) Cervicalgia Status: Acute (6) DVT prophylaxis Heparin sq
[2017-09-04 08:29] VITALS: BP 146/65; PULSE 83; RESP 20; TEMP 98.3
--- NOTE | 2017-09-04 10:58 | CP.PCM.DIS ---
Provider - Provider Date of Admission: 09/03/17 12:23 Attending physician: Jeremy Ruiz DO Primary care physician: Dr. Ramirez Consults: PT consult Time Spent in preparation of Discharge (in minutes): 15 Hospital Course - Lab Results Lab Results: Micro Results 09/02/17 17:38 Urine Urine Culture - Final 10-50,000 CFU/ML. MULTIPLE SPECIES. PROBABLE CONTAMINATION. Most Recent Lab Values WBC 6.6 K/uL (4.8-10.8) 09/03/17 05:55 RBC 3.33 Mil/uL (4.40-5.90) L 09/03/17 05:55 Hgb 10.6 g/dL (12.0-18.0) L 09/03/17 05:55 Hct 31.6 % (35.0-51.0) L 09/03/17 05:55 MCV 94.7 fl (80.0-94.0) H 09/03/17 05:55 MCH 31.8 pg (27.0-31.0) H 09/03/17 05:55 MCHC 33.6 g/dL (33.0-37.0) 09/03/17 05:55 RDW 13.2 % (11.5-14.5) 09/03/17 05:55 Plt Count 82 K/uL (130-400) L 09/03/17 05:55 MPV 9.2 fl (7.2-11.7) 09/02/17 16:08 Neut % (Auto) 59.3 % (50.0-75.0) 09/02/17 16:08 Lymph % (Auto) 15.5 % (20.0-40.0) L 09/02/17 16:08 Rogers % (Auto) 24.9 % (0.0-10.0) H 09/02/17 16:08 Eos % (Auto) 0.1 % (0.0-4.0) 09/02/17 16:08 Baso % (Auto) 0.2 % (0.0-2.0) 09/02/17 16:08 Neut # (Auto) 4.8 K/uL (1.8-7.0) 09/02/17 16:08 Lymph # (Auto) 1.3 K/uL (1.0-4.3) 09/02/17 16:08 Rogers # (Auto) 2.0 K/uL (0.0-0.8) H 09/02/17 16:08 Eos # (Auto) 0.0 K/uL (0.0-0.7) 09/02/17 16:08 Baso # (Auto) 0.0 K/uL (0.0-0.2) 09/02/17 16:08 Neutrophils % (Manual) 64 % (42-75) 09/02/17 16:08 Band Neutrophils % 3 % (0-2) H 09/02/17 16:08 Lymphocytes % (Manual) 14 % (20-50) L 09/02/17 16:08 Reactive Lymphs % 1 % (0-0) H 09/02/17 16:08 Monocytes % (Manual) 16 % (0-10) H 09/02/17 16:08 Blast Cells % 2 % (0-0) H 09/02/17 16:08 Platelet Estimate Decreased (NORMAL) L 09/02/17 16:08 Hypochromasia (manual) Slight 09/02/17 16:08 Poikilocytosis (manual Slight 09/02/17 16:08 Anisocytosis (manual) Slight 09/02/17 16:08 Target Cells Slight 09/02/17 16:08 Ovalocytes Slight 09/02/17 16:08 Acanthocytes (Spur) Slight 09/02/17 16:08 Sodium 144 mmol/l (132-148) 09/03/17 05:55 Potassium 3.8 MMOL/L (3.6-5.0) 09/03/17 05:55 Chloride 103 mmol/L (98-107) 09/03/17 05:55 Carbon Dioxide 31 mmol/L (22-30) H 09/03/17 05:55 Anion Gap 14 (10-20) 09/03/17 05:55 BUN 30 mg/dl (9-20) H 09/03/17 05:55 Creatinine 1.0 mg/dl (0.8-1.5) 09/03/17 05:55 Est GFR ( Amer) > 60 09/03/17 05:55 Est GFR (Non-Af Amer) > 60 09/03/17 05:55 Random Glucose 107 mg/dL (75-110) 09/03/17 05:55 Calcium 9.5 mg/dL (8.4-10.2) 09/03/17 05:55 Total Bilirubin 1.2 mg/dl (0.2-1.3) 09/02/17 16:08 AST 20 U/L (17-59) 09/02/17 16:08 ALT 26 U/L (21-72) 09/02/17 16:08 Alkaline Phosphatase 43 U/L (38-126) 09/02/17 16:08 Total Protein 6.6 G/DL (6.3-8.2) 09/02/17 16:08 Albumin 3.6 g/dL (3.5-5.0) 09/02/17 16:08 Globulin 3.0 gm/dL (2.2-3.9) 09/02/17 16:08 Albumin/Globulin Ratio 1.2 (1.0-2.1) 09/02/17 16:08 Urine Color Yellow (YELLOW) 09/02/17 17:38 Urine Clarity Slighty-cloudy (Clear) 09/02/17 17:38 Urine pH 5.0 (5.0-8.0) 09/02/17 17:38 Ur Specific [place] 1.026 (1.003-1.030) 09/02/17 17:38 Urine Protein 100 mg/dL (NEGATIVE) 09/02/17 17:38 Urine Glucose (UA) Neg mg/dL (Normal) 09/02/17 17:38 Urine Ketones Negative mg/dL (NEGATIVE) 09/02/17 17:38 Urine Blood Small (NEGATIVE) 09/02/17 17:38 Urine Nitrate Negative (NEGATIVE) 09/02/17 17:38 Urine Bilirubin Negative (NEGATIVE) 09/02/17 17:38 Urine Urobilinogen 0.2-1.0 mg/dL (0.2-1.0) 09/02/17 17:38 Ur Leukocyte Esterase Neg [place]/uL (Negative) 09/02/17 17:38 Urine RBC (Auto) 2 /hpf (0-3) 09/02/17 17:38 Urine Microscopic WBC 1 /hpf (0-5) 09/02/17 17:38 - Hospital Course Hospital Course: 86 year old male with a past medical history of osteoarthritis, BPH, CAD with hx pacemaker, essential hypertension, hypercholesterolemia, dementia,came to the ED accompanied by family status post fall, with ataxic gait. Patient has a big echymosis on his mandible. Imaging of shoulders and hip showed no acute pathology Patient was placed under observation for fall and unstable gait and PT consulted that recommended physical therapy . Patient and family prefer physical therapy at home.Will discharge patient home with home physical therapy Follow up with Dr. Ramirez as outpatient . 1. Ataxic gait and generalized weakness and fall no fractures no evidence of UTI or acute infectious process Physical therapy evaluation- recommending transitional care unit upon discharge due to unsteady gait with 2 recent falls in the past. Family and patient prefer home PT. Will discharge patient home with physical therapy Motrin PRN for arthritic pain from osteoarthritis Counselled to use gait assist devices 2.Multiple trauma no fractures 3. Dementia Chronic Continue home dementia medication 4. Hypertensive cardiovascular disease Chronic Continue Diovan 160 mg po daily 5. BPH (benign prostatic hyperplasia) Chronic Oxybutynin 5.Cervicalgia pain management Discharge Exam - Head Exam Head Exam: ATRAUMATIC, NORMOCEPHALIC Additional comments: mandible echymosis - Eye Exam Eye Exam: EOMI, Normal appearance, PERRL Pupil Exam: NORMAL ACCOMODATION - ENT Exam ENT Exam: Normal Exam - Neck Exam Neck exam: Full Rom, Normal Inspection - Respiratory Exam Respiratory Exam: Clear to PA & Lateral, NORMAL BREATHING PATTERN. absent: Rales, Rhonchi, Wheezes - Cardiovascular Exam Cardiovascular Exam: REGULAR RHYTHM, RRR, +S1, +S2. absent: JVD - GI/Abdominal Exam GI & Abdominal Exam: Normal Bowel Sounds, Soft. absent: Distended, Guarding, Rebound, Tenderness - Rectal Exam Rectal Exam: Deferred - Extremities Exam Extremities exam: normal capillary refill, normal inspection, pedal pulses present - Back Exam Back exam: NORMAL INSPECTION - Neurological Exam Neurological exam: Alert, CN II-XII Intact, Oriented x3 Additional comments: shuffling gait - Psychiatric Exam Psychiatric exam: Normal Affect - Skin Skin Exam: Dry, Warm Discharge Plan - Follow Up Plan Condition: STABLE Disposition: HOME/ ROUTINE Patient education suggested?: Yes Instructions: Preventing Falls in the Older Adult Additional Instructions: follow up with your primary doctor tomorrow for reevaluation return to the ED with any worsening or concerning symptoms [facility] [phone] Referrals: Luis Antonio MD [Staff Provider] -
--- NOTE | 2017-09-04 10:58 | CP.PCM.PN ---
Objective - Vital Signs/Intake and Output Vital Signs (last 24 hours): Temp Pulse Resp BP Pulse Ox 98.3 F 83 20 146/65 99 09/04/17 08:28 09/04/17 08:28 09/04/17 08:28 09/04/17 08:28 09/04/17 08:28 - Medications Medications: Current Medications Atorvastatin Calcium (Lipitor) 10 mg PO DAILY [facility] Last Admin: 09/04/17 08:53 Dose: 10 mg Heparin Sodium (Porcine) (Heparin) 5,000 units SC Q12 DAVID PRN Reason: Protocol Last Admin: 09/04/17 08:49 Dose: 5,000 units Ibuprofen (Motrin Tab) 600 mg PO Q6 PRN PRN Reason: Pain, Mild (1-3) Last Admin: 09/02/17 22:48 Dose: 600 mg Memantine (Namenda) 5 mg PO DAILY [facility] Last Admin: 09/04/17 08:49 Dose: 5 mg Oxybutynin Chloride (Ditropan Tab) 5 mg PO DAILY [facility] Last Admin: 09/04/17 08:49 Dose: 5 mg Valsartan (Diovan) 160 mg PO DAILY [facility] Last Admin: 09/04/17 08:49 Dose: 160 mg - Labs Labs: 09/03/17 05:55 09/03/17 05:55
[2017-09-08 10:59] VITALS: O2SAT 96
== END 2017-09-04 15:15 | disposition home health service (06) ==
LOC: H.ER 14:17 → H.ERHOLD 17:18 → H.MEDSURG1 21:23 → INTOOBSV 09-03 12:23 → OBSVTOIN 09-03 12:23
PROVIDERS: ADMIT Internal Medicine; ATTEND Internal Medicine
DX: R26.0 Ataxic gait (principal); R53.1 Weakness; F03.90 Unspecified dementia, unspecified severity, without behavioral disturbance, psychotic disturbance, mood disturbance, and anxiety; I11.9 Hypertensive heart disease without heart failure; N40.0 Benign prostatic hyperplasia without lower urinary tract symptoms; M54.2 Cervicalgia; I25.10 Atherosclerotic heart disease of native coronary artery without angina pectoris; E78.00 Pure hypercholesterolemia, unspecified; I10 Essential (primary) hypertension; Z86.718 Personal history of other venous thrombosis and embolism; Z95.0 Presence of cardiac pacemaker; M12.9 Arthropathy, unspecified; M25.511 Pain in right shoulder
CPT/HCPCS: 36415; 70450; 70486; 71045; 73030; 73521; 80048; 80053; 81003; 85025; 85027; 87086; 93005; 97116; 97161; 97530; 99282; G0378; G8978; G8979; J1644